=== PATIENT | female | born 1980 | race Caucasian/White ===

== ENCOUNTER 2020-12-14 08:49 | Inpatient (IN) | payer MEDICAID ==
[~2020-12-14] VITALS: Ht 170.2 cm; Wt 79.5 kg
[2020-12-14] MEDS ORDERED: normal saline 1000ml 1,000 ML IVB ONE (09:10)
[2020-12-14] MEDS ORDERED: pantoprazole 40 MG vial IV ONE (09:20)
[2020-12-14] MEDS ORDERED: normal saline 1000ML IV soln IVB ONE ×3 (09:20→11:45)
[2020-12-14] MEDS ORDERED: ondansetron/PF 4mg/2ml inj IV ONE (09:20)
[2020-12-14 09:44] LABS: BASOPHILS % (AUTO) 0 % (0-1); EOSINOPHILS % (AUTO) 0 % (0-6); HEMATOCRIT 37.2 % (35.0-45.0); HEMOGLOBIN 12.4 g/dl (12.0-16.0); LYMPHOCYTES # (AUTO) 0.4 X10'3 (1.1-4.8); LYMPHOCYTES % (AUTO) 2.4 % (21-51); MEAN CORPUSCULAR HEMOGLOBIN 35.7 PG (27.0-31.0); MEAN CORPUSCULAR HGB CONC 33.3 g/dL (33.0-36.5); MEAN PLATELET VOLUME 8.6 FL (7.4-10.4); MONOCYTES # (AUTO) 1.9 X10'3 (0-0.9); MONOCYTES % (AUTO) 10.2 % (2-12); NEUTROPHILS # (AUTO) 16.1 X10'3 (1.8-7.7); NEUTROPHILS % (AUTO) 87.4 % (42-75); PLATELET COUNT 277 X10'3 (140-440); RED BLOOD COUNT 3.47 X10'6 (4.20-5.60); RED CELL DISTRIBUTION WIDTH 16.4 % (11.5-14.5); WHITE BLOOD COUNT 18.5 X10'3 (4.5-11.0)
[2020-12-14 09:57] LABS: ALANINE AMINOTRANSFERASE 103 U/L (12-78); ALBUMIN 2.2 G/DL (3.4-5.0); ALBUMIN/GLOBULIN RATIO 0.6 (1.1-1.5); ALKALINE PHOSPHATASE 135 IU/L (46-116); ANION GAP 14 (8-16); ASPARTATE AMINO TRANSFERASE 106 U/L (10-37); BILIRUBIN,TOTAL 2.2 MG/DL (0.1-1.0); BLOOD UREA NITROGEN 23 MG/DL (7-18); CALCIUM 7.5 MG/DL (8.5-10.1); CHLORIDE 106 MMOL/L (99-107); CREATININE 1.35 MG/DL (0.40-0.90); ETHANOL < 0.010 GM/DL (0.0-0.010); GLUCOSE 216 MG/DL (70-104); POTASSIUM 3.2 MMOL/L (3.5-5.1); SODIUM 138 MMOL/L (135-145); TOTAL CARBON DIOXIDE 18.4 MMOL/L (24-32); TOTAL PROTEIN 5.8 G/DL (6.4-8.2); eGFR 43 ML/MIN
[2020-12-14 10:17] LABS: ANISOCYTOSIS 1+; PLATELET ESTIMATE NORMAL; TOTAL CELLS COUNTED 100
[2020-12-14 11:02] LABS: URINE HCG NEGATIVE (NEG)
[2020-12-14 11:19] LABS: URINE AMPHETAMINE SCREEN NEGATIVE (Neg); URINE BARBITUATE SCREEN NEGATIVE (Neg); URINE BENZODIAZEPINES SCREEN NEGATIVE (Neg); URINE CANNABINOID SCREEN NEGATIVE (Neg); URINE COCAINE SCREEN NEGATIVE (Neg); URINE METHADONE SCREEN NEGATIVE (Neg); URINE OPIATE SCREEN NEGATIVE (Neg); URINE PHENCYCLIDINE SCREEN NEGATIVE (Neg)
[2020-12-14 12:00] LABS: CLARITY,URINE CLOUDY (Clear); COLOR,URINE AMBER (Yellow); GLUCOSE, URINE NEGATIVE (Neg); KETONES,URINE 15 mg/dl (Neg); LEUKOCYTE ESTERASE ,URINE LARGE (Neg); NITRITES, URINE POSITIVE (Neg); OCCULT BLOOD,URINE TRACE-INTACT (Neg); PROTEIN,URINE TRACE mg/dl (Neg)
[2020-12-14 12:05] LABS: UA COLLECTION TYPE FOLEY CATH
[2020-12-14 12:07] LABS: BACTERIA,URINE 4+ /HPF (Neg); MUCUS STRANDS FEW /LPF (Neg); RBC,URINE 0-2 /HPF (0-2); SQUAMOUS EPITHELIAL CELL,UR NONE SEEN /LPF (FEW); WBC,URINE 50-100 /HPF (0-4)
[2020-12-14] MEDS ORDERED: piperacillin/tazo 3.375gm/50ml 50 ML IV ONE (12:15)
--- NOTE | 2020-12-14 13:01 | NUR ---
Patient laying on gurney moaning, did wake up but is ALOC.
--- NOTE | 2020-12-14 13:43 | NUR ---
Dr. Crane with patient
[2020-12-14] MEDS ORDERED: acetaminophen 325mg tablet PO PRN (14:00)
[2020-12-14] MEDS ORDERED: ondansetron/PF 4mg/2ml inj IV PRN (14:00)
[2020-12-14] MEDS ORDERED: potassium Cl 20 mEq SR tablet PO PRN (14:00)
[2020-12-14] MEDS ORDERED: magnesium 2GM in 50ml NS 50 ML IV PRN (14:00)
[2020-12-14] MEDS ORDERED: LORazepam 2 mg/ml vial IV PRN (14:00)
[2020-12-14] MEDS ORDERED: magnesium hydroxide 30ml (MOM) UD suspension PO PRN (14:00)
[2020-12-14] MEDS ORDERED: LORazepam 1 MG tablet PO PRN (14:00)
[2020-12-14] MEDS ORDERED: potassium Cl 40MEQ/1/2NS 520ml 520 ML IV PRN ×2 (14:00)
[2020-12-14] MEDS ORDERED: magnesium Cl slow-release 64mg tablet PO PRN (14:00)
[2020-12-14] MEDS ORDERED: mag hydrox/Alum hydrox/simeth 30ml oral suspension PO PRN (14:00)
[2020-12-14] MEDS ORDERED: thiamine 100mg/ml 2ml inj. IV ONE (14:00)
[2020-12-14] MEDS ORDERED: dextrose 50%-water 50ml dispensing syringe IV PRN (14:00)
[2020-12-14] MEDS ORDERED: magnesium 4gm in 100ml NS 100 ML IV PRN (14:00)
[2020-12-14] MEDS ORDERED: thiamine 100mg tablet PO SCH (14:17)
--- NOTE | 2020-12-14 14:23 | NUR ---
NG Placed, patient is waking up and becoming more alert. US Tech is in with patient now.
[2020-12-14] MEDS: normal saline 1000ml 1,000 ML IV SCH ×2 (15:08→20:40)
--- NOTE | 2020-12-14 15:14 | NUR ---
Patient's mother Latia Lewis [phone] called for update, I advised we were admitting Raeann. I was able to get medical history from mother.
[2020-12-14] MEDS: vancomycin/NS 1 GM ADD-VANTAGE 250 ML IV SCH (15:15)
[2020-12-14] MEDS ORDERED: NO HOME MEDS (16:03)
--- NOTE | 2020-12-14 16:33 | NUR ---
Patient's fiance is at the bedside and would like to talk with Dr. Crane, I paged her.
--- NOTE | 2020-12-14 16:42 | NUR ---
Dr. Crane in room talking with
[2020-12-14] MEDS: piperacillin/tazo 3.375gm/50ml 50 ML IV SCH ×2 (16:55→23:32)
[2020-12-14] MEDS: K and/or MAG REPLACEMENT MC SCH (19:31)
[2020-12-14] MEDS: thiamine inj. 100 MG in normal saline 100ml IV soln 100 ML IV SCH (19:31)
--- NOTE | 2020-12-14 19:33 | NUR ---
Dr. Quinones notified of T waves inverted on monitor; order for stat EKG. reviewed and compared to initial EKG, no new orders. aware K+ 3.2 is currently being replaced.
[2020-12-14] MEDS: heparin, porcine 5000 units/ml vial SQ SCH (20:08)
--- NOTE | 2020-12-14 22:32 | NUR ---
Patient is able to answer questions, denies pain but states "I am just so tired".
--- NOTE | 2020-12-14 23:27 | NUR ---
Called Telemetry unit for report, RN will call me back.
--- NOTE | 2020-12-15 00:45 | NUR ---
Blank Belcher placed with warm blankets.
--- NOTE | 2020-12-15 00:45 | NUR ---
Dr. Quinones notified of bladder temp 35.0 C (95.0 F). New orders received to keep body temp above 97.0 F, use warm blankets or Blank hugger.
--- NOTE | 2020-12-15 01:16 | NUR ---
Receiving RN updated on patient now with Blank Belcher. Request to call back with report after 30 minutes.
--- NOTE | 2020-12-15 02:30 | NUR ---
Pt arrived via gurney in no acute distress. Oriented to bed, room, surroundings, and POC. Sleeping interm.
[2020-12-15 03:00] VITALS: BP 122/77
[2020-12-15] MEDS: normal saline 1000ml 1,000 ML IV SCH ×3 (03:43→17:47)
[2020-12-15] MEDS: vancomycin/NS 1 GM ADD-VANTAGE 250 ML IV SCH (04:19)
[2020-12-15 06:00] VITALS: BP 124/80
[2020-12-15 06:52] LABS: BASOPHILS % (AUTO) 0.1 % (0-1); EOSINOPHILS # (AUTO) 0.1 X10'3 (0-0.9); EOSINOPHILS % (AUTO) 1.2 % (0-6); HEMATOCRIT 36.9 % (35.0-45.0); HEMOGLOBIN 12.3 g/dl (12.0-16.0); LYMPHOCYTES # (AUTO) 0.5 X10'3 (1.1-4.8); MEAN CORPUSCULAR HEMOGLOBIN 36.1 PG (27.0-31.0); MEAN CORPUSCULAR HGB CONC 33.2 g/dL (33.0-36.5); MEAN CORPUSCULAR VOLUME 108.6 FL (78-98); MEAN PLATELET VOLUME 9.3 FL (7.4-10.4); MONOCYTES # (AUTO) 0.6 X10'3 (0-0.9); MONOCYTES % (AUTO) 4.9 % (2-12); NEUTROPHILS % (AUTO) 89.8 % (42-75); PLATELET COUNT 217 X10'3 (140-440); RED CELL DISTRIBUTION WIDTH 16.7 % (11.5-14.5); WHITE BLOOD COUNT 12.2 X10'3 (4.5-11.0)
[2020-12-15 06:57] LABS: ALANINE AMINOTRANSFERASE 95 U/L (12-78); ALBUMIN/GLOBULIN RATIO 0.6 (1.1-1.5); ALKALINE PHOSPHATASE 129 IU/L (46-116); ANION GAP 12 (8-16); ASPARTATE AMINO TRANSFERASE 100 U/L (10-37); BILIRUBIN,TOTAL 2.1 MG/DL (0.1-1.0); BLOOD UREA NITROGEN 10 MG/DL (7-18); BUN/CREATININE RATIO 13.7 (6.6-38.0); CALCIUM 7.5 MG/DL (8.5-10.1); CHLORIDE 109 MMOL/L (99-107); CREATININE 0.73 MG/DL (0.40-0.90); GLUCOSE 82 MG/DL (70-104); MAGNESIUM 1.6 MG/DL (1.5-2.4); PHOSPHORUS 2.5 MG/DL (2.3-4.5); POTASSIUM 3.8 MMOL/L (3.5-5.1); SODIUM 141 MMOL/L (135-145); TOTAL CARBON DIOXIDE 20.2 MMOL/L (24-32); TOTAL PROTEIN 5.4 G/DL (6.4-8.2); eGFR 88 ML/MIN
--- NOTE | 2020-12-15 07:53 | NUR ---
Problems reprioritized. Patient report given, questions answered & plan of care reviewed with Nicki ALBA.
[2020-12-15] MEDS: K and/or MAG REPLACEMENT MC SCH ×2 (08:00→20:00)
[2020-12-15] MEDS ORDERED: folic acid 1mg tablet PO SCH (08:00)
[2020-12-15] MEDS: folic acid 1mg/0.2ml inj IV SCH (08:00)
[2020-12-15] MEDS: multivitamins, therapeutics tablet PO SCH (08:40)
[2020-12-15] MEDS: heparin, porcine 5000 units/ml vial SQ SCH ×2 (08:40→22:14)
[2020-12-15] MEDS: piperacillin/tazo 3.375gm/50ml 50 ML IV SCH ×2 (08:40→16:00)
[2020-12-15] MEDS: thiamine inj. 100 MG in normal saline 100ml IV soln 100 ML IV SCH (08:40)
[2020-12-15] MEDS ORDERED: acetaminophen 325mg tablet PO PRN (09:20)
[2020-12-15 11:00] VITALS: BP 116/79
[2020-12-15] MEDS ORDERED: vancomycin/NS 1 GM ADD-VANTAGE 250 ML IV SCH (12:00)
[2020-12-15 15:00] VITALS: BP 127/70
--- NOTE | 2020-12-15 16:13 | NUR ---
Initial: Pt admitted w/ ALOC after alcohol abuse per EMR. Pt currently on Clear liquid diet consuming 100% but not meeting needs d/t restrictive diet order. No N/V/D reported, LBM not known. Discussed w/ RN about advancing pt's diet if MD agreeable. Will continue to monitor. Recommend 1. Advance to Regular diet per MD order 2. Ensure Clear TID to provide 720kcals and 24g protein if consumed 100% 3. Bowel care per rx 4. Weekly wts Addendum: 12/15/20 at [address] Amended: Links added.
--- NOTE | 2020-12-15 18:00 | NUR ---
Patient in room U 3016. I have received report from Nicki ALBA and had the opportunity to ask questions and assume patient care. Addendum: 12/15/20 at 1846 by Isabel Kaye RN Amended: Links added.
--- NOTE | 2020-12-15 18:32 | NUR ---
Patient in room U 3016. I have received report from ANJALI Hall and had the opportunity to ask questions and assume patient care. Addendum: 12/15/20 at 1834 by Nicki Modi RN Report not received, report given: Problems reprioritized. Patient report given, questions answered & plan of care reviewed with ANJALI Hall.
[2020-12-15 18:56] VITALS: BP 117/77
--- NOTE | 2020-12-15 19:00 | NUR ---
Pt. is lethargic, responsive but drifts right back to sleep therefore could not gather much information from patient during my assessment rounds. Bed alarm activated and bed in low position. Will continue monitoring. Addendum: 12/16/20 at 0156 by Isabel Kaye RN Amended: Links added.
[2020-12-15 22:00] VITALS: BP 124/81
[2020-12-15] MEDS: lactobacillus rhamnosus 10,000 MMU CELLS/CAPSULE PO SCH (22:14)
[2020-12-16] MEDS: piperacillin/tazo 3.375gm/50ml 50 ML IV SCH ×4 (00:55→23:44)
[2020-12-16] MEDS: normal saline 1000ml 1,000 ML IV SCH ×3 (00:55→23:32)
[2020-12-16 02:00] VITALS: BP 146/79
[2020-12-16] MEDS ORDERED: VANCOMYCIN LEVEL IV ONE (03:30)
[2020-12-16 06:00] VITALS: BP 142/83
[2020-12-16 07:35] LABS: BASOPHILS % (AUTO) 0.3 % (0-1); EOSINOPHILS # (AUTO) 0.1 X10'3 (0-0.9); EOSINOPHILS % (AUTO) 1.8 % (0-6); HEMATOCRIT 33.6 % (35.0-45.0); HEMOGLOBIN 11.4 g/dl (12.0-16.0); LYMPHOCYTES # (AUTO) 0.9 X10'3 (1.1-4.8); LYMPHOCYTES % (AUTO) 12.7 % (21-51); MEAN CORPUSCULAR HEMOGLOBIN 36.5 PG (27.0-31.0); MEAN CORPUSCULAR HGB CONC 33.8 g/dL (33.0-36.5); MEAN CORPUSCULAR VOLUME 107.8 FL (78-98); MEAN PLATELET VOLUME 9.1 FL (7.4-10.4); MONOCYTES # (AUTO) 0.7 X10'3 (0-0.9); MONOCYTES % (AUTO) 9.3 % (2-12); NEUTROPHILS # (AUTO) 5.5 X10'3 (1.8-7.7); NEUTROPHILS % (AUTO) 75.9 % (42-75); PLATELET COUNT 203 X10'3 (140-440); RED BLOOD COUNT 3.12 X10'6 (4.20-5.60); WHITE BLOOD COUNT 7.3 X10'3 (4.5-11.0)
[2020-12-16 07:50] LABS: ALANINE AMINOTRANSFERASE 83 U/L (12-78); ALBUMIN 1.8 G/DL (3.4-5.0); ALBUMIN/GLOBULIN RATIO 0.5 (1.1-1.5); ALKALINE PHOSPHATASE 121 IU/L (46-116); ANION GAP 8 (8-16); ASPARTATE AMINO TRANSFERASE 88 U/L (10-37); BILIRUBIN,TOTAL 1.5 MG/DL (0.1-1.0); BLOOD UREA NITROGEN 4 MG/DL (7-18); BUN/CREATININE RATIO 6.6 (6.6-38.0); CALCIUM 7.6 MG/DL (8.5-10.1); CHLORIDE 110 MMOL/L (99-107); CREATININE 0.61 MG/DL (0.40-0.90); GLUCOSE 81 MG/DL (70-104); POTASSIUM 3.2 MMOL/L (3.5-5.1); SODIUM 138 MMOL/L (135-145); TOTAL CARBON DIOXIDE 19.9 MMOL/L (24-32); TOTAL PROTEIN 5.1 G/DL (6.4-8.2); eGFR > 90 ML/MIN
[2020-12-16 07:51] LABS: MAGNESIUM 1.7 MG/DL (1.5-2.4); PHOSPHORUS 2.8 MG/DL (2.3-4.5)
[2020-12-16] MEDS: K and/or MAG REPLACEMENT MC SCH ×2 (08:00→20:00)
[2020-12-16] MEDS: folic acid 1mg/0.2ml inj IV SCH (08:09)
[2020-12-16] MEDS: heparin, porcine 5000 units/ml vial SQ SCH ×2 (08:14→19:55)
[2020-12-16 11:00] VITALS: BP 148/79
[2020-12-16] MEDS: lactobacillus rhamnosus 10,000 MMU CELLS/CAPSULE PO SCH ×2 (14:25→20:00)
[2020-12-16] MEDS: potassium Cl 20 mEq SR tablet PO PRN ×2 (14:25→19:55)
[2020-12-16] MEDS: multivitamins, therapeutics tablet PO SCH (14:25)
[2020-12-16] MEDS: thiamine inj. 100 MG in normal saline 100ml IV soln 100 ML IV SCH (14:26)
--- NOTE | 2020-12-16 14:38 | NUR ---
Malnutrition Consult: Pt has no edema/wounds, pending scaled wt this admit w/ no prior wt hx, and PO 75-100% initial clear liquid meals now advanced to full liquid diet today further PO intake pending. At this time pt lacks minimum two malnutrition criteria. Will monitor for additional criteria this admit. Recommend 1. Advance to Regular diet per MD 2. IF prolonged restrictive diet or PO remains poor; consider ensure enlive ONS 3. continue routine thiamin, folic, MVI for etoh hx 4. Bowel care per rx 5. scaled wt this admit; subsequent weekly wts Addendum: 12/16/20 at [address] Amended: Links added.
[2020-12-16 15:00] VITALS: BP 122/83
[2020-12-16] MEDS: NUT.TX.IMPAIRED DIGEST FXN (Ensure Clear) 237 ML PO SCH (17:38)
[2020-12-16 18:30] VITALS: BP 127/86
[2020-12-16 22:00] VITALS: BP 137/92
[2020-12-17 02:20] VITALS: BP 132/83
[2020-12-17 06:00] VITALS: BP 130/90
--- NOTE | 2020-12-17 06:27 | NUR ---
Patient in room PCU 3016. I have received report from ANJALI KURTZ and had the opportunity to ask questions and assume patient care.
[2020-12-17 06:36] LABS: BASOPHILS % (AUTO) 0.6 % (0-1); EOSINOPHILS # (AUTO) 0.1 X10'3 (0-0.9); EOSINOPHILS % (AUTO) 2.2 % (0-6); HEMATOCRIT 30.8 % (35.0-45.0); HEMOGLOBIN 10.3 g/dl (12.0-16.0); LYMPHOCYTES # (AUTO) 1.3 X10'3 (1.1-4.8); MEAN CORPUSCULAR HEMOGLOBIN 35.8 PG (27.0-31.0); MEAN CORPUSCULAR HGB CONC 33.6 g/dL (33.0-36.5); MEAN CORPUSCULAR VOLUME 106.5 FL (78-98); MEAN PLATELET VOLUME 8.9 FL (7.4-10.4); MONOCYTES # (AUTO) 0.5 X10'3 (0-0.9); MONOCYTES % (AUTO) 7.5 % (2-12); NEUTROPHILS # (AUTO) 4.1 X10'3 (1.8-7.7); NEUTROPHILS % (AUTO) 67.7 % (42-75); PLATELET COUNT 207 X10'3 (140-440); RED BLOOD COUNT 2.89 X10'6 (4.20-5.60); RED CELL DISTRIBUTION WIDTH 15.9 % (11.5-14.5); WHITE BLOOD COUNT 6.1 X10'3 (4.5-11.0)
[2020-12-17 06:55] LABS: ALANINE AMINOTRANSFERASE 72 U/L (12-78); ALBUMIN 1.7 G/DL (3.4-5.0); ALBUMIN/GLOBULIN RATIO 0.6 (1.1-1.5); ALKALINE PHOSPHATASE 115 IU/L (46-116); ANION GAP 10 (8-16); ASPARTATE AMINO TRANSFERASE 70 U/L (10-37); BILIRUBIN,TOTAL 1.1 MG/DL (0.1-1.0); BLOOD UREA NITROGEN 2 MG/DL (7-18); BUN/CREATININE RATIO 3.4 (6.6-38.0); CALCIUM 7.8 MG/DL (8.5-10.1); CHLORIDE 116 MMOL/L (99-107); CREATININE 0.58 MG/DL (0.40-0.90); GLUCOSE 83 MG/DL (70-104); MAGNESIUM 1.8 MG/DL (1.5-2.4); PHOSPHORUS 3.3 MG/DL (2.3-4.5); POTASSIUM 3.4 MMOL/L (3.5-5.1); SODIUM 148 MMOL/L (135-145); TOTAL CARBON DIOXIDE 22.2 MMOL/L (24-32); TOTAL PROTEIN 4.7 G/DL (6.4-8.2); eGFR > 90 ML/MIN
[2020-12-17] MEDS: K and/or MAG REPLACEMENT MC SCH ×2 (08:00→20:00)
[2020-12-17] MEDS: NUT.TX.IMPAIRED DIGEST FXN (Ensure Clear) 237 ML PO SCH ×3 (08:00→18:00)
[2020-12-17] MEDS: thiamine inj. 100 MG in normal saline 100ml IV soln 100 ML IV SCH (08:00)
[2020-12-17] MEDS: lactobacillus rhamnosus 10,000 MMU CELLS/CAPSULE PO SCH ×2 (09:15→19:41)
[2020-12-17] MEDS: multivitamins, therapeutics tablet PO SCH (09:15)
[2020-12-17] MEDS: piperacillin/tazo 3.375gm/50ml 50 ML IV SCH ×2 (09:15→16:00)
[2020-12-17] MEDS: heparin, porcine 5000 units/ml vial SQ SCH ×2 (09:16→19:41)
[2020-12-17] MEDS: folic acid 1mg/0.2ml inj IV SCH (09:31)
[2020-12-17] MEDS: normal saline 1000ml 1,000 ML IV SCH ×2 (09:33→19:32)
[2020-12-17 11:00] VITALS: BP 130/87
--- NOTE | 2020-12-17 14:46 | NUR ---
Paged Dr. Crane regarding patient discharge. PAGER ID: [phone] MESSAGE: [phone]. RUI GARCIA. Can we cancel the discharge on patient? It is still active. Thank you. Lisa ALBA x [phone]
[2020-12-17] MEDS ORDERED: magnesium Cl slow-release 64mg tablet PO PRN (15:30)
[2020-12-17] MEDS ORDERED: magnesium 4gm in 100ml NS 100 ML IV PRN (15:30)
[2020-12-17] MEDS ORDERED: potassium Cl 40MEQ/1/2NS 520ml 520 ML IV PRN (15:30)
[2020-12-17] MEDS ORDERED: magnesium 2GM in 50ml NS 50 ML IV PRN (15:30)
[2020-12-17] MEDS ORDERED: potassium Cl 20 mEq SR tablet PO PRN (15:30)
[2020-12-17 17:00] VITALS: BP 111/78
--- NOTE | 2020-12-17 17:00 | NUR ---
pt enc to void via bedpan ,unable, bladder scanned with 632cc urine in bladder, straight cathed w/o difficulty for 700 cc clear yellow urine
[2020-12-17 18:30] VITALS: BP 109/71
--- NOTE | 2020-12-17 18:34 | NUR ---
Problems reprioritized. Patient report given, questions answered & plan of care reviewed with lazara cornell.
[2020-12-17] MEDS: acetaminophen 325mg tablet PO PRN (19:46)
[2020-12-17 22:00] VITALS: BP 127/91
[2020-12-18] MEDS: piperacillin/tazo 3.375gm/50ml 50 ML IV SCH ×3 (00:37→16:34)
[2020-12-18 02:00] VITALS: BP 130/84
[2020-12-18 06:00] VITALS: BP 129/84
[2020-12-18 06:07] LABS: BASOPHILS % (AUTO) 0.6 % (0-1); EOSINOPHILS # (AUTO) 0.2 X10'3 (0-0.9); EOSINOPHILS % (AUTO) 2.6 % (0-6); HEMATOCRIT 31.1 % (35.0-45.0); HEMOGLOBIN 10.4 g/dl (12.0-16.0); LYMPHOCYTES # (AUTO) 1.2 X10'3 (1.1-4.8); MEAN CORPUSCULAR HEMOGLOBIN 35.7 PG (27.0-31.0); MEAN CORPUSCULAR HGB CONC 33.3 g/dL (33.0-36.5); MEAN CORPUSCULAR VOLUME 107.3 FL (78-98); MEAN PLATELET VOLUME 8.9 FL (7.4-10.4); MONOCYTES # (AUTO) 0.5 X10'3 (0-0.9); NEUTROPHILS # (AUTO) 4.3 X10'3 (1.8-7.7); NEUTROPHILS % (AUTO) 68.8 % (42-75); PLATELET COUNT 252 X10'3 (140-440); RED CELL DISTRIBUTION WIDTH 16.1 % (11.5-14.5); WHITE BLOOD COUNT 6.2 X10'3 (4.5-11.0)
[2020-12-18 06:25] LABS: ALANINE AMINOTRANSFERASE 67 U/L (12-78); ALBUMIN 1.7 G/DL (3.4-5.0); ALBUMIN/GLOBULIN RATIO 0.5 (1.1-1.5); ALKALINE PHOSPHATASE 111 IU/L (46-116); ANION GAP 9 (8-16); ASPARTATE AMINO TRANSFERASE 66 U/L (10-37); BILIRUBIN,TOTAL 1.1 MG/DL (0.1-1.0); BLOOD UREA NITROGEN 4 MG/DL (7-18); BUN/CREATININE RATIO 6.3 (6.6-38.0); CALCIUM 7.8 MG/DL (8.5-10.1); CHLORIDE 116 MMOL/L (99-107); CREATININE 0.63 MG/DL (0.40-0.90); GLUCOSE 90 MG/DL (70-104); MAGNESIUM 1.7 MG/DL (1.5-2.4); POTASSIUM 3.7 MMOL/L (3.5-5.1); SODIUM 150 MMOL/L (135-145); TOTAL CARBON DIOXIDE 24.9 MMOL/L (24-32); eGFR > 90 ML/MIN
--- NOTE | 2020-12-18 06:41 | NUR ---
Problems reprioritized. Patient report given, questions answered & plan of care reviewed with ENE. Addendum: 12/18/20 at 0642 by Antonio Mojica RN Amended: Links added.
[2020-12-18 06:46] LABS: ANISOCYTOSIS 1+; PLATELET ESTIMATE NORMAL; TOTAL CELLS COUNTED 100
[2020-12-18 06:47] LABS: LARGE PLATELETS FEW
[2020-12-18] MEDS: acetaminophen 325mg tablet PO PRN (07:55)
[2020-12-18] MEDS: K and/or MAG REPLACEMENT MC SCH ×2 (08:00→20:00)
--- NOTE | 2020-12-18 08:25 | NUR ---
[facility] [phone] MESSAGE: room 3016B Raeann Jass, Na is 150 and pt has NS running @ 100, can we switch her to 1/2 NS? thank you, Nyla ALBA #[phone]
[2020-12-18] MEDS: NUT.TX.IMPAIRED DIGEST FXN (Ensure Clear) 237 ML PO SCH ×2 (08:30→13:00)
[2020-12-18] MEDS: normal saline 1000ml 1,000 ML IV SCH (09:40)
[2020-12-18] MEDS: thiamine inj. 100 MG in normal saline 100ml IV soln 100 ML IV SCH ×2 (09:40→10:08)
[2020-12-18] MEDS: heparin, porcine 5000 units/ml vial SQ SCH ×2 (09:42→20:28)
[2020-12-18] MEDS: lactobacillus rhamnosus 10,000 MMU CELLS/CAPSULE PO SCH ×2 (09:42→20:28)
[2020-12-18] MEDS: multivitamins, therapeutics tablet PO SCH (09:42)
[2020-12-18 11:00] VITALS: BP 134/97
--- NOTE | 2020-12-18 12:00 | NUR ---
Reassessment: Pt advanced to regular diet last night 12/17, today is first day receiving regular meals. Per RN, pt ate 100% of breakfast today. Discussed w/ RN to d/c Ensure Clear. Pt w/ elevated Na while receiving NS, noted that RN has addressed this to MD. No N/V/D reported, LBM 12/14. No nutritional diagnosis at this time, will continue to monitor PO trends and need for ONS on Regular diet. Recommend 1. Continue Regular diet as tolerated 2. Bowel care per rx 3. continue routine thiamin, folic, MVI for etoh hx 4. scaled wt this admit; subsequent weekly wts Addendum: 12/18/20 at [address] Amended: Links added.
[2020-12-18 15:00] VITALS: BP 126/82
[2020-12-18] MEDS: folic acid 1mg/0.2ml inj IV SCH (15:32)
[2020-12-18] MEDS: dextrose 5%-water 1,000 ML IV SCH (15:32)
[2020-12-18 18:00] VITALS: BP 117/84
--- NOTE | 2020-12-18 18:30 | NUR ---
Patient in room PCU 3016. I have received report from ENE ALBA and had the opportunity to ask questions and assume patient care.
[2020-12-18 22:00] VITALS: BP 122/76
[2020-12-19] MEDS: piperacillin/tazo 3.375gm/50ml 50 ML IV SCH ×3 (00:31→16:39)
[2020-12-19 02:00] VITALS: BP 108/76
[2020-12-19] MEDS: dextrose 5%-water 1,000 ML IV SCH ×2 (04:31→18:26)
[2020-12-19 06:00] VITALS: BP 117/79
--- NOTE | 2020-12-19 06:25 | NUR ---
Problems reprioritized. Patient report given, questions answered & plan of care reviewed with CHANTEL ALBA.
--- NOTE | 2020-12-19 06:29 | NUR ---
Patient in room PCU 3016. I have received report from ANJALI WALKER, and had the opportunity to ask questions and assume patient care.
[2020-12-19 06:36] LABS: BASOPHILS % (AUTO) 0.9 % (0-1); EOSINOPHILS # (AUTO) 0.2 X10'3 (0-0.9); EOSINOPHILS % (AUTO) 4.2 % (0-6); HEMATOCRIT 30.3 % (35.0-45.0); HEMOGLOBIN 10.1 g/dl (12.0-16.0); LYMPHOCYTES # (AUTO) 1.4 X10'3 (1.1-4.8); LYMPHOCYTES % (AUTO) 29.4 % (21-51); MEAN CORPUSCULAR HEMOGLOBIN 35.6 PG (27.0-31.0); MEAN CORPUSCULAR HGB CONC 33.4 g/dL (33.0-36.5); MEAN CORPUSCULAR VOLUME 106.4 FL (78-98); MEAN PLATELET VOLUME 8.7 FL (7.4-10.4); MONOCYTES # (AUTO) 0.4 X10'3 (0-0.9); MONOCYTES % (AUTO) 8.2 % (2-12); NEUTROPHILS # (AUTO) 2.8 X10'3 (1.8-7.7); NEUTROPHILS % (AUTO) 57.3 % (42-75); PLATELET COUNT 255 X10'3 (140-440); RED BLOOD COUNT 2.85 X10'6 (4.20-5.60); WHITE BLOOD COUNT 4.8 X10'3 (4.5-11.0)
[2020-12-19 06:57] LABS: ALANINE AMINOTRANSFERASE 59 U/L (12-78); ALBUMIN 1.7 G/DL (3.4-5.0); ALBUMIN/GLOBULIN RATIO 0.5 (1.1-1.5); ALKALINE PHOSPHATASE 115 IU/L (46-116); ANION GAP 7 (8-16); ASPARTATE AMINO TRANSFERASE 52 U/L (10-37); BILIRUBIN,TOTAL 0.8 MG/DL (0.1-1.0); BLOOD UREA NITROGEN 4 MG/DL (7-18); BUN/CREATININE RATIO 5.5 (6.6-38.0); CHLORIDE 113 MMOL/L (99-107); CREATININE 0.73 MG/DL (0.40-0.90); GLUCOSE 102 MG/DL (70-104); MAGNESIUM 1.7 MG/DL (1.5-2.4); POTASSIUM 3.2 MMOL/L (3.5-5.1); SODIUM 147 MMOL/L (135-145); TOTAL CARBON DIOXIDE 26.9 MMOL/L (24-32); TOTAL PROTEIN 4.9 G/DL (6.4-8.2); eGFR 88 ML/MIN
[2020-12-19] MEDS: K and/or MAG REPLACEMENT MC SCH ×2 (08:00→19:29)
[2020-12-19] MEDS: folic acid 1mg/0.2ml inj IV SCH (08:13)
[2020-12-19] MEDS: thiamine inj. 100 MG in normal saline 100ml IV soln 100 ML IV SCH (08:15)
[2020-12-19] MEDS: multivitamins, therapeutics tablet PO SCH (08:18)
[2020-12-19] MEDS: heparin, porcine 5000 units/ml vial SQ SCH ×2 (08:19→20:43)
[2020-12-19] MEDS: lactobacillus rhamnosus 10,000 MMU CELLS/CAPSULE PO SCH ×2 (08:20→20:44)
[2020-12-19] MEDS: potassium Cl 20 mEq SR tablet PO PRN ×3 (08:24→18:26)
[2020-12-19 11:00] VITALS: BP 111/68
[2020-12-19 15:00] VITALS: BP 123/84
[2020-12-19 16:29] LABS: HIV ANTIBODY 1&2 RAPID NON-REACTIVE (Neg)
[2020-12-19 18:00] VITALS: BP 127/72
[2020-12-19] MEDS ORDERED: GADOTERATE MEGLUMINE 7.5 MMOL/15 ML VIAL IV ONE (19:01)
[2020-12-19] MEDS: Melatonin 3mg tablet PO SCH (20:44)
[2020-12-19 22:00] VITALS: BP 118/86
[2020-12-20] MEDS: piperacillin/tazo 3.375gm/50ml 50 ML IV SCH ×5 (00:39→23:48)
[2020-12-20 02:00] VITALS: BP 116/85
[2020-12-20 06:00] VITALS: BP 127/87
--- NOTE | 2020-12-20 06:31 | NUR ---
Problems reprioritized. Patient report given, questions answered & plan of care reviewed with ANJALI Hermosillo and ANJALI Redmond.
--- NOTE | 2020-12-20 06:35 | NUR ---
Patient in room PCU 3016. I have received report from Lisbet ALBA and had the opportunity to ask questions and assume patient care.
--- NOTE | 2020-12-20 06:37 | NUR ---
Patient in room PCU 3016. I have received report from STEVIE ALBA and had the opportunity to ask questions and assume patient care. PT AWAKE DURING REPORT.
[2020-12-20] MEDS: dextrose 5%-water 1,000 ML IV SCH ×2 (07:15→19:04)
[2020-12-20 07:43] LABS: BASOPHILS # (AUTO) 0.1 X10'3 (0-0.2); EOSINOPHILS # (AUTO) 0.2 X10'3 (0-0.9); EOSINOPHILS % (AUTO) 2.9 % (0-6); HEMATOCRIT 30.7 % (35.0-45.0); HEMOGLOBIN 10.2 g/dl (12.0-16.0); LYMPHOCYTES # (AUTO) 1.1 X10'3 (1.1-4.8); LYMPHOCYTES % (AUTO) 19.3 % (21-51); MEAN CORPUSCULAR HEMOGLOBIN 35.5 PG (27.0-31.0); MEAN CORPUSCULAR HGB CONC 33.3 g/dL (33.0-36.5); MEAN CORPUSCULAR VOLUME 106.7 FL (78-98); MONOCYTES # (AUTO) 0.4 X10'3 (0-0.9); MONOCYTES % (AUTO) 6.5 % (2-12); NEUTROPHILS # (AUTO) 3.9 X10'3 (1.8-7.7); NEUTROPHILS % (AUTO) 70.3 % (42-75); PLATELET COUNT 287 X10'3 (140-440); RED BLOOD COUNT 2.88 X10'6 (4.20-5.60); RED CELL DISTRIBUTION WIDTH 16.4 % (11.5-14.5); WHITE BLOOD COUNT 5.5 X10'3 (4.5-11.0)
[2020-12-20 08:07] LABS: ALANINE AMINOTRANSFERASE 54 U/L (12-78); ALBUMIN 1.9 G/DL (3.4-5.0); ALBUMIN/GLOBULIN RATIO 0.6 (1.1-1.5); ALKALINE PHOSPHATASE 118 IU/L (46-116); ANION GAP 6 (8-16); ASPARTATE AMINO TRANSFERASE 50 U/L (10-37); BILIRUBIN,TOTAL 0.7 MG/DL (0.1-1.0); BLOOD UREA NITROGEN 6 MG/DL (7-18); BUN/CREATININE RATIO 7.6 (6.6-38.0); CALCIUM 8.1 MG/DL (8.5-10.1); CHLORIDE 112 MMOL/L (99-107); CREATININE 0.79 MG/DL (0.40-0.90); GLUCOSE 145 MG/DL (70-104); MAGNESIUM 1.9 MG/DL (1.5-2.4); PHOSPHORUS 3.8 MG/DL (2.3-4.5); POTASSIUM 3.4 MMOL/L (3.5-5.1); SODIUM 145 MMOL/L (135-145); TOTAL CARBON DIOXIDE 27.5 MMOL/L (24-32); TOTAL PROTEIN 5.2 G/DL (6.4-8.2); eGFR 80 ML/MIN
[2020-12-20] MEDS: thiamine inj. 100 MG in normal saline 100ml IV soln 100 ML IV SCH (08:36)
[2020-12-20] MEDS: folic acid 1mg/0.2ml inj IV SCH (08:37)
[2020-12-20] MEDS: lactobacillus rhamnosus 10,000 MMU CELLS/CAPSULE PO SCH ×2 (08:38→20:44)
[2020-12-20] MEDS: potassium Cl 20 mEq SR tablet PO PRN ×3 (08:38→20:44)
[2020-12-20] MEDS: heparin, porcine 5000 units/ml vial SQ SCH ×2 (08:38→20:45)
[2020-12-20] MEDS: acetaminophen 325mg tablet PO PRN (08:39)
[2020-12-20] MEDS: multivitamins, therapeutics tablet PO SCH (08:39)
[2020-12-20] MEDS: K and/or MAG REPLACEMENT MC SCH ×2 (08:51→20:00)
[2020-12-20 11:00] VITALS: BP 132/90
--- NOTE | 2020-12-20 14:12 | NUR ---
Reassessment: Pt continues on regular diet and PO intake fluctuates with overall average 52% PO intake since diet advancement, however noted pt with 100% PO intake at breakfast this morning. Noted pt receiving D5 at 100 mL/hr providing roughly 408 kcal/day. Per EMR pt with h/o gastric bypass surgery in 2016, pt currently receiving routine MVI and vitamin B12 and vitamin B1 labs pending. Possible that pt will not consistently consume 100% PO intake of meals r/t bariatric surgery. LBM 8/ with PRN bowel care available however not documented to be given. Constipation likely to impact appetite. D/w dietary to send prunes and prune juice with next meal to assist with bowel regularity. Will continue to follow and monitor need for further nutrition intervention. Recommend 1. Continue Regular diet 2. Routine Thiamine, Folic, and MVI for EtOH hx and h/o gastric bypass 3. Routine bowel care 4. Scaled wt this admit; subsequent weekly scaled wts Addendum: 12/20/20 at [address] Amended: Links added.
[2020-12-20 15:00] VITALS: BP 117/81
[2020-12-20 18:00] VITALS: BP 118/75
--- NOTE | 2020-12-20 18:09 | NUR ---
Problems reprioritized. Patient report given, questions answered & plan of care reviewed with Vannessa ALBA.
--- NOTE | 2020-12-20 18:30 | NUR ---
Patient in room PCU 3016. I have received report from Nyla ALBA and Bay RN and had the opportunity to ask questions and assume patient care.
[2020-12-20] MEDS ORDERED: potassium Cl 40MEQ/1/2NS 520ml 520 ML IV PRN (20:35)
[2020-12-20] MEDS ORDERED: magnesium Cl slow-release 64mg tablet PO PRN (20:35)
[2020-12-20] MEDS ORDERED: potassium Cl 20 mEq SR tablet PO PRN (20:35)
[2020-12-20] MEDS ORDERED: magnesium 4gm in 100ml NS 100 ML IV PRN (20:35)
[2020-12-20] MEDS: Melatonin 3mg tablet PO SCH (20:43)
[2020-12-20 22:00] VITALS: BP 116/74
[2020-12-21 02:00] VITALS: BP 105/72
--- NOTE | 2020-12-21 06:08 | NUR ---
Problems reprioritized. Patient report given, questions answered & plan of care reviewed with Brittni ALBA.
[2020-12-21 06:16] LABS: BASOPHILS % (AUTO) 0.7 % (0-1); EOSINOPHILS # (AUTO) 0.2 X10'3 (0-0.9); EOSINOPHILS % (AUTO) 3.3 % (0-6); HEMATOCRIT 33.3 % (35.0-45.0); HEMOGLOBIN 10.8 g/dl (12.0-16.0); LYMPHOCYTES # (AUTO) 1.1 X10'3 (1.1-4.8); LYMPHOCYTES % (AUTO) 17.4 % (21-51); MEAN CORPUSCULAR HEMOGLOBIN 35.5 PG (27.0-31.0); MEAN CORPUSCULAR HGB CONC 32.5 g/dL (33.0-36.5); MEAN CORPUSCULAR VOLUME 109.3 FL (78-98); MEAN PLATELET VOLUME 8.7 FL (7.4-10.4); MONOCYTES # (AUTO) 0.4 X10'3 (0-0.9); NEUTROPHILS # (AUTO) 4.3 X10'3 (1.8-7.7); NEUTROPHILS % (AUTO) 71.6 % (42-75); PLATELET COUNT 285 X10'3 (140-440); RED BLOOD COUNT 3.05 X10'6 (4.20-5.60)
[2020-12-21 06:32] LABS: ALANINE AMINOTRANSFERASE 52 U/L (12-78); ALBUMIN/GLOBULIN RATIO 0.6 (1.1-1.5); ALKALINE PHOSPHATASE 107 IU/L (46-116); ANION GAP 8 (8-16); ASPARTATE AMINO TRANSFERASE 40 U/L (10-37); BILIRUBIN,TOTAL 0.7 MG/DL (0.1-1.0); BLOOD UREA NITROGEN 4 MG/DL (7-18); CHLORIDE 103 MMOL/L (99-107); GLUCOSE 387 MG/DL (70-104); MAGNESIUM 1.5 MG/DL (1.5-2.4); PHOSPHORUS 3.8 MG/DL (2.3-4.5); POTASSIUM 3.4 MMOL/L (3.5-5.1); SODIUM 137 MMOL/L (135-145); TOTAL PROTEIN 5.5 G/DL (6.4-8.2); eGFR 79 ML/MIN
[2020-12-21 07:00] VITALS: BP 123/81
--- NOTE | 2020-12-21 07:11 | NUR ---
Patient in room U 3016. I have received report from and had the opportunity to ask questions and assume patient care. Addendum: 12/21/20 at 0714 by Brittni Serrano RN report received from Vannessa ALBA. Pt supine in bed, sleeping soundly, chest rising and falling evenly. SRx2, BLL, CL within reach, no s/sx acute distress
[2020-12-21] MEDS: K and/or MAG REPLACEMENT MC SCH ×4 (08:00→20:00)
[2020-12-21] MEDS: folic acid 1mg/0.2ml inj IV SCH (08:55)
[2020-12-21] MEDS: piperacillin/tazo 3.375gm/50ml 50 ML IV SCH ×2 (08:55→17:00)
[2020-12-21] MEDS: lactobacillus rhamnosus 10,000 MMU CELLS/CAPSULE PO SCH ×2 (08:55→20:53)
[2020-12-21] MEDS: multivitamins, therapeutics tablet PO SCH (08:55)
[2020-12-21] MEDS: heparin, porcine 5000 units/ml vial SQ SCH ×2 (08:56→20:53)
[2020-12-21] MEDS: potassium Cl 20 mEq SR tablet PO PRN ×3 (08:57→21:18)
[2020-12-21 10:31] LABS: HBSAG SCREEN Negative (Negative); HEP A AB, IGM Negative (Negative); HEPATITIS C ANTIBODY <0.1 s/co ratio (0.0-0.9)
[2020-12-21 11:00] VITALS: BP 113/82
[2020-12-21] MEDS: dextrose 5%-water 1,000 ML IV SCH ×2 (13:28→23:15)
[2020-12-21 15:00] VITALS: BP 128/80
--- NOTE | 2020-12-21 18:19 | NUR ---
discharge summary and negative covid test faced to [facility]. Addendum: 12/21/20 at 1820 by Brittni Serrano RN faxed*
--- NOTE | 2020-12-21 18:20 | NUR ---
Problems reprioritized. Patient report given, questions answered & plan of care reviewed with Lita ALBA.
[2020-12-21 19:00] VITALS: BP 116/80
[2020-12-21] MEDS: Melatonin 3mg tablet PO SCH (20:53)
[2020-12-21 23:00] VITALS: BP 138/64
[2020-12-22] MEDS: piperacillin/tazo 3.375gm/50ml 50 ML IV SCH ×3 (00:49→15:51)
[2020-12-22 03:00] VITALS: BP 115/64
[2020-12-22 06:00] VITALS: BP 116/82
--- NOTE | 2020-12-22 06:48 | NUR ---
Patient in room PCU 3016. I have received report from jaun ALBA and had the opportunity to ask questions and assume patient care.
[2020-12-22 06:49] LABS: BASOPHILS # (AUTO) 0.1 X10'3 (0-0.2); BASOPHILS % (AUTO) 0.9 % (0-1); EOSINOPHILS # (AUTO) 0.2 X10'3 (0-0.9); EOSINOPHILS % (AUTO) 3.7 % (0-6); HEMOGLOBIN 11.8 g/dl (12.0-16.0); LYMPHOCYTES # (AUTO) 1.5 X10'3 (1.1-4.8); LYMPHOCYTES % (AUTO) 23.2 % (21-51); MEAN CORPUSCULAR HEMOGLOBIN 35.4 PG (27.0-31.0); MEAN CORPUSCULAR HGB CONC 32.8 g/dL (33.0-36.5); MEAN CORPUSCULAR VOLUME 107.8 FL (78-98); MEAN PLATELET VOLUME 8.6 FL (7.4-10.4); MONOCYTES # (AUTO) 0.5 X10'3 (0-0.9); MONOCYTES % (AUTO) 8.7 % (2-12); NEUTROPHILS % (AUTO) 63.5 % (42-75); PLATELET COUNT 307 X10'3 (140-440); RED BLOOD COUNT 3.34 X10'6 (4.20-5.60); RED CELL DISTRIBUTION WIDTH 15.6 % (11.5-14.5); WHITE BLOOD COUNT 6.2 X10'3 (4.5-11.0)
[2020-12-22 07:13] LABS: ALANINE AMINOTRANSFERASE 47 U/L (12-78); ALBUMIN 2.2 G/DL (3.4-5.0); ALBUMIN/GLOBULIN RATIO 0.6 (1.1-1.5); ALKALINE PHOSPHATASE 120 IU/L (46-116); ANION GAP 6 (8-16); ASPARTATE AMINO TRANSFERASE 45 U/L (10-37); BILIRUBIN,TOTAL 0.7 MG/DL (0.1-1.0); BLOOD UREA NITROGEN 4 MG/DL (7-18); BUN/CREATININE RATIO 4.7 (6.6-38.0); CALCIUM 8.7 MG/DL (8.5-10.1); CHLORIDE 112 MMOL/L (99-107); CREATININE 0.85 MG/DL (0.40-0.90); GLUCOSE 90 MG/DL (70-104); MAGNESIUM 2.1 MG/DL (1.5-2.4); PHOSPHORUS 4.6 MG/DL (2.3-4.5); SODIUM 146 MMOL/L (135-145); TOTAL CARBON DIOXIDE 27.9 MMOL/L (24-32); TOTAL PROTEIN 5.8 G/DL (6.4-8.2); eGFR 74 ML/MIN
[2020-12-22] MEDS: K and/or MAG REPLACEMENT MC SCH ×2 (08:00→20:00)
[2020-12-22] MEDS: multivitamins, therapeutics tablet PO SCH (08:30)
[2020-12-22] MEDS: lactobacillus rhamnosus 10,000 MMU CELLS/CAPSULE PO SCH ×2 (08:30→20:21)
[2020-12-22] MEDS: heparin, porcine 5000 units/ml vial SQ SCH ×2 (08:31→20:21)
[2020-12-22] MEDS ORDERED: thiamine 100mg tablet PO SCH (09:18)
[2020-12-22] MEDS ORDERED: folic acid 1mg tablet PO SCH (09:18)
[2020-12-22] MEDS: acetaminophen 325mg tablet PO PRN (09:39)
[2020-12-22 11:00] VITALS: BP 120/84
[2020-12-22] MEDS: dextrose 5%-water 1,000 ML IV SCH (12:35)
--- NOTE | 2020-12-22 18:43 | NUR ---
Patient in room PCU 3016. I have received report from ANJALI Pierson and had the opportunity to ask questions and assume patient care.
--- NOTE | 2020-12-22 18:56 | NUR ---
Problems reprioritized. Patient report given, questions answered & plan of care reviewed with Gail ALBA ICU at [facility]. Reviewed Pt's Hx, DX, current updates on vitals etc. Pt Going to [facility] ICU floor, BED #8. Pt being Eccepted by Dr. Grossman. Report called at [phone]. Wahl in Transfer center needs to be called to be given estimated arrival time at [phone]. NOC nurse Yamila Rn is aware as well as charge nurse Albert.
--- NOTE | 2020-12-22 19:02 | NUR ---
Problems reprioritized. Patient report given, questions answered & plan of care reviewed with ritu ALBA.
[2020-12-22 20:15] VITALS: BP 134/78
[2020-12-22] MEDS: Melatonin 3mg tablet PO SCH (20:21)
[2020-12-22] MEDS ORDERED: HYDROcodone/acetaminophen 5mg/325mg tablet PO PRN (21:30)
[2020-12-22] MEDS ORDERED: morphine 2 MG/ML inj. syringe IV PRN (21:30)
[2020-12-22 22:00] VITALS: BP 120/85
--- NOTE | 2020-12-23 00:28 | NUR ---
Report given to Rosie Maloney RN of [employer]. All patient belongings sent with patient. Addendum: 12/23/20 at 0031 by Carlota Van RN Spoke with Mitch at [facility] at [phone] to give approximate arrival time of 0230.
== END 2020-12-23 00:37 | disposition short-term general hospital (02) | DRG 720 ==
LOC: ER 08:51 → ED HOLD 14:03 → EDBEDREQ 20:48 → PCU 3S 12-15 02:30
PROVIDERS: ADMIT Internal Medicine; ATTEND Internal Medicine
PROC: 4A10X4Z Monitoring of Central Nervous Electrical Activity, External Approach (ICD-10-PCS; principal; 2020-12-20)
DX: A41.9 Sepsis, unspecified organism (principal); G92 Toxic encephalopathy; N17.9 Acute kidney failure, unspecified; E87.0 Hyperosmolality and hypernatremia; K56.7 Ileus, unspecified; E87.6 Hypokalemia; G62.9 Polyneuropathy, unspecified; Z20.822 Contact with and (suspected) exposure to COVID-19; R74.01 Elevation of levels of liver transaminase levels; F10.20 Alcohol dependence, uncomplicated; G93.9 Disorder of brain, unspecified; B96.20 Unspecified Escherichia coli [E. coli] as the cause of diseases classified elsewhere; R15.9 Full incontinence of feces; R27.0 Ataxia, unspecified; K52.9 Noninfective gastroenteritis and colitis, unspecified; N39.0 Urinary tract infection, site not specified; Z98.84 Bariatric surgery status
CPT/HCPCS: 36415; 70544; 70547; 70553; 74176; 76700; 80053; 80202; 80305; 80320; 81001; 81025; 82140; 82607; 82948; 83605; 83735; 84100; 84145; 84425; 84443; 85007; 85025; 86592; 86703; 86705; 86706; 86709; 86803; 87040; 87077; 87081; 87088; 87186; 87340; 87635; 93005; 93306; 93880; 95816; 96361; 96365; 96375; 97110; 97161; 97530; 99285; A9575; C9113; G0378; J1644; J2060; J2405; J2543; J3370; J3411; J3480; J3490; J7030; J7070

== ENCOUNTER 2021-01-07 14:15 | Inpatient (IN) | payer MEDICAID ==
[~2021-01-07] VITALS: Ht 170.2 cm; Wt 79.0 kg
[~2021-01-07 14:15] MED LIST: NO HOME MEDS
[2021-01-07 22:30] VITALS: BP 139/88
[2021-01-07] MEDS ORDERED: ACET-1015 PO (23:26)
[2021-01-07] MEDS ORDERED: GABA300C PO (23:26)
[2021-01-07] MEDS ORDERED: POLY17PO10 PO (23:26)
[2021-01-07] MEDS ORDERED: HEPA1DIS10 SQ (23:26)
[2021-01-07] MEDS ORDERED: FLUC200T28 PO (23:26)
[2021-01-07] MEDS ORDERED: [UNRECOGNIZED DRUG - CODE] PO (23:26)
[2021-01-07] MEDS ORDERED: THIA50TA10 PO (23:26)
[2021-01-07] MEDS ORDERED: MULT-1085 PO (23:26)
[2021-01-07] MEDS ORDERED: QUET25TA PO (23:26)
[2021-01-07] MEDS ORDERED: SENN-25 PO (23:26)
[2021-01-07] MEDS ORDERED: VITA-347 PO (23:26)
[2021-01-07] MEDS ORDERED: FLO0.4C PO (23:26)
--- NOTE | 2021-01-08 00:20 | NUR ---
Dr. Crane here,seen and examined pt,will enter admission orders.
[2021-01-08] MEDS ORDERED: magnesium 2GM in 50ml NS 50 ML IV PRN (00:25)
[2021-01-08] MEDS ORDERED: morphine 2 MG/ML inj. syringe IV PRN (00:25)
[2021-01-08] MEDS ORDERED: mag hydrox/Alum hydrox/simeth 30ml oral suspension PO PRN (00:25)
[2021-01-08] MEDS ORDERED: ondansetron/PF 4mg/2ml inj IV PRN (00:25)
[2021-01-08] MEDS ORDERED: potassium Cl 20 mEq SR tablet PO PRN (00:25)
[2021-01-08] MEDS ORDERED: acetaminophen 325mg tablet PO PRN ×2 (00:25)
[2021-01-08] MEDS ORDERED: HYDROcodone/acetaminophen 5mg/325mg tablet PO PRN (00:25)
[2021-01-08] MEDS ORDERED: normal saline 1000ml 1,000 ML IV SCH (00:25)
[2021-01-08] MEDS ORDERED: potassium Cl 40MEQ/1/2NS 520ml 520 ML IV PRN ×2 (00:25)
[2021-01-08] MEDS ORDERED: magnesium Cl slow-release 64mg tablet PO PRN (00:25)
[2021-01-08] MEDS ORDERED: magnesium hydroxide 30ml (MOM) UD suspension PO PRN (00:25)
[2021-01-08] MEDS ORDERED: magnesium 4gm in 100ml NS 100 ML IV PRN (00:25)
[2021-01-08 02:00] VITALS: BP 122/88
[2021-01-08 02:53] LABS: BASOPHILS # (AUTO) 0.1 X10'3 (0-0.2); BASOPHILS % (AUTO) 0.6 % (0-1); EOSINOPHILS # (AUTO) 0.3 X10'3 (0-0.9); EOSINOPHILS % (AUTO) 3.3 % (0-6); HEMATOCRIT 36.9 % (35.0-45.0); HEMOGLOBIN 11.9 g/dl (12.0-16.0); LYMPHOCYTES # (AUTO) 1.5 X10'3 (1.1-4.8); LYMPHOCYTES % (AUTO) 17.8 % (21-51); MEAN CORPUSCULAR HEMOGLOBIN 32.7 PG (27.0-31.0); MEAN CORPUSCULAR HGB CONC 32.3 g/dL (33.0-36.5); MEAN CORPUSCULAR VOLUME 101.1 FL (78-98); MEAN PLATELET VOLUME 8.1 FL (7.4-10.4); MONOCYTES # (AUTO) 0.7 X10'3 (0-0.9); MONOCYTES % (AUTO) 8.5 % (2-12); NEUTROPHILS % (AUTO) 69.8 % (42-75); PLATELET COUNT 417 X10'3 (140-440); RED BLOOD COUNT 3.65 X10'6 (4.20-5.60); RED CELL DISTRIBUTION WIDTH 14.2 % (11.5-14.5); WHITE BLOOD COUNT 8.6 X10'3 (4.5-11.0)
[2021-01-08 03:11] LABS: ALANINE AMINOTRANSFERASE 33 U/L (12-78); ALBUMIN 2.9 G/DL (3.4-5.0); ALBUMIN/GLOBULIN RATIO 0.7 (1.1-1.5); ALKALINE PHOSPHATASE 102 IU/L (46-116); ANION GAP 15 (8-16); ASPARTATE AMINO TRANSFERASE 33 U/L (10-37); BILIRUBIN,TOTAL 0.9 MG/DL (0.1-1.0); BLOOD UREA NITROGEN 6 MG/DL (7-18); BUN/CREATININE RATIO 10.3 (6.6-38.0); CALCIUM 8.2 MG/DL (8.5-10.1); CHLORIDE 103 MMOL/L (99-107); CREATININE 0.58 MG/DL (0.40-0.90); GLUCOSE 76 MG/DL (70-104); POTASSIUM 3.4 MMOL/L (3.5-5.1); SODIUM 139 MMOL/L (135-145); TOTAL CARBON DIOXIDE 20.8 MMOL/L (24-32); TOTAL PROTEIN 6.9 G/DL (6.4-8.2); eGFR > 90 ML/MIN
[2021-01-08] MEDS ORDERED: non-formulary drug (Acetaminophen 2 TAB) PO PRN (05:50)
--- NOTE | 2021-01-08 07:00 | NUR ---
Patient in room ORTHO 4010. I have received report from TESSIE RN and had the opportunity to ask questions and assume patient care.
[2021-01-08] MEDS ORDERED: K and/or MAG REPLACEMENT MC SCH (08:00)
[2021-01-08] MEDS: polyethylene glycol 3350 17gm powd pack PO SCH (08:00)
[2021-01-08] MEDS: thiamine 100mg tablet PO SCH (08:27)
[2021-01-08] MEDS: multivitamins, therapeutics tablet PO SCH (08:27)
[2021-01-08] MEDS: heparin, porcine 5000 units/ml vial SQ SCH ×2 (08:29→20:00)
[2021-01-08] MEDS: potassium Cl 20 mEq SR tablet PO PRN ×2 (08:31→13:16)
[2021-01-08] MEDS: fluconazole 100mg tablet PO SCH (09:54)
[2021-01-08] MEDS: cephalexin 250mg capsule PO SCH ×3 (09:55→21:46)
[2021-01-08 10:00] VITALS: BP 138/92
--- NOTE | 2021-01-08 10:56 | NUR ---
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 Pt has no significant weakness noted, no edema, no scaled wt this admit or recent prior admit hx, and PO 25% first meal this AM on regular diet per EMR. RN reports pt has no issues chewing/swallowing. Receiving thiamin and MVI w/ MCV 101 per EMR. Pt lacks minimum malnutrition criteria at this time. Will monitor for additional malnutrition criteria this admit. Addendum: 01/08/21 at [address] Amended: Links added.
--- NOTE | 2021-01-08 13:24 | NUR ---
Page Sent PAGER ID: [phone] MESSAGE: [id number] JOSE PT PULLED OUT IV. CAN HER FLUIDS BE DISCONTINUED? I DIDNT SEE ANY ANTIBIOTICS. THANKS ROXANA [id number]
[2021-01-08] MEDS ORDERED: ondansetron 4mg rapidly disintigrating tab PO PRN (13:25)
--- NOTE | 2021-01-08 14:30 | NUR ---
Page Sent promotional table spacer PAGER ID: [phone] MESSAGE: [id number] Jesus GARCIA. Yojana ALEJANDRA DC DO YOU WANT ME TO GIVE PT LAST REPLACEMENT A ONE TIME ORDER? OR IS SHE OK NOT TO HAVE LAST ONE? ROXANA [id number]
--- NOTE | 2021-01-08 17:05 | NUR ---
Page Sent PAGER ID: [phone] MESSAGE: [id number] Jesus GARCIA, CAN I DO A MIS NURSE ORDER NOT NEEDING IV? OR DO YOU WANT AN IV IN THE PT STILL? SHE PULLED THE LAST ONE OUT EARLIER. THANKS ROXANA [id number]
[2021-01-08 18:00] VITALS: BP 131/98
--- NOTE | 2021-01-08 18:26 | NUR ---
Problems reprioritized. Patient report given, questions answered & plan of care reviewed with STEVIE ALBA.
--- NOTE | 2021-01-08 18:45 | NUR ---
Patient in room ORTHO 4010. I have received report from Martita ALBA and had the opportunity to ask questions and assume patient care.
[2021-01-08] MEDS ORDERED: temazepam 15mg capsule PO PRN (21:00)
[2021-01-08] MEDS: QUEtiapine 25mg tablet PO SCH (21:45)
[2021-01-08] MEDS: gabapentin 300mg capsule PO SCH (21:45)
[2021-01-08] MEDS: lactobacillus rhamnosus 10,000 MMU CELLS/CAPSULE PO SCH (21:46)
[2021-01-08 22:00] VITALS: BP 133/85
[2021-01-09] MEDS: cephalexin 250mg capsule PO SCH ×4 (01:44→22:02)
[2021-01-09 02:30] VITALS: BP 117/79
[2021-01-09 06:23] VITALS: BP 129/82
--- NOTE | 2021-01-09 06:23 | NUR ---
Problems reprioritized. Patient report given, questions answered & plan of care reviewed with Polly ALBA.
--- NOTE | 2021-01-09 06:23 | NUR ---
Patient in room ORTHO 4010. I have received report from Lisbet ALBA and had the opportunity to ask questions and assume patient care.
[2021-01-09 07:13] LABS: BASOPHILS # (AUTO) 0.1 X10'3 (0-0.2); EOSINOPHILS # (AUTO) 0.4 X10'3 (0-0.9); EOSINOPHILS % (AUTO) 5.9 % (0-6); HEMATOCRIT 34.5 % (35.0-45.0); HEMOGLOBIN 11.6 g/dl (12.0-16.0); LYMPHOCYTES # (AUTO) 1.7 X10'3 (1.1-4.8); LYMPHOCYTES % (AUTO) 22.1 % (21-51); MEAN CORPUSCULAR HEMOGLOBIN 33.1 PG (27.0-31.0); MEAN CORPUSCULAR HGB CONC 33.5 g/dL (33.0-36.5); MEAN CORPUSCULAR VOLUME 98.9 FL (78-98); MEAN PLATELET VOLUME 8.2 FL (7.4-10.4); MONOCYTES # (AUTO) 0.7 X10'3 (0-0.9); MONOCYTES % (AUTO) 9.7 % (2-12); NEUTROPHILS # (AUTO) 4.6 X10'3 (1.8-7.7); NEUTROPHILS % (AUTO) 61.3 % (42-75); PLATELET COUNT 423 X10'3 (140-440); RED BLOOD COUNT 3.49 X10'6 (4.20-5.60); RED CELL DISTRIBUTION WIDTH 14.7 % (11.5-14.5); WHITE BLOOD COUNT 7.6 X10'3 (4.5-11.0)
[2021-01-09 07:50] LABS: ALANINE AMINOTRANSFERASE 33 U/L (12-78); ALBUMIN 2.9 G/DL (3.4-5.0); ALBUMIN/GLOBULIN RATIO 0.8 (1.1-1.5); ALKALINE PHOSPHATASE 104 IU/L (46-116); ANION GAP 18 (8-16); ASPARTATE AMINO TRANSFERASE 38 U/L (10-37); BILIRUBIN,TOTAL 0.8 MG/DL (0.1-1.0); BLOOD UREA NITROGEN 5 MG/DL (7-18); BUN/CREATININE RATIO 8.8 (6.6-38.0); CALCIUM 8.5 MG/DL (8.5-10.1); CHLORIDE 105 MMOL/L (99-107); CREATININE 0.57 MG/DL (0.40-0.90); GLUCOSE 78 MG/DL (70-104); POTASSIUM 3.8 MMOL/L (3.5-5.1); SODIUM 140 MMOL/L (135-145); TOTAL PROTEIN 6.7 G/DL (6.4-8.2); eGFR > 90 ML/MIN
[2021-01-09] MEDS: multivitamins, therapeutics tablet PO SCH (08:00)
[2021-01-09] MEDS: polyethylene glycol 3350 17gm powd pack PO SCH (08:00)
[2021-01-09] MEDS: thiamine 100mg tablet PO SCH (08:00)
[2021-01-09] MEDS: lactobacillus rhamnosus 10,000 MMU CELLS/CAPSULE PO SCH ×2 (08:00→22:01)
[2021-01-09] MEDS: heparin, porcine 5000 units/ml vial SQ SCH ×2 (08:03→22:03)
--- NOTE | 2021-01-09 08:16 | NUR ---
Patient is very sedated after getting both seroquel and a restoril last night. Not cooperating with trying to take morning medications, will ask pharmacy to send new doses of keflex and diflucan in hopes that she will wake up soon. She is alert and oriented x1, VSS and arousable however patient is somulent at this time.
--- NOTE | 2021-01-09 09:03 | NUR ---
PAGER ID: [phone] MESSAGE: [phone], Jass today is my first day with her, she asked for a restoril with her Seroquel last night and has been pretty sedated. She is able to open her eyes and tell me her name. Given her neuro history just sending an FYI. Polly [phone]
[2021-01-09] MEDS: sodium bicarbonate (8.4%) inj. 100 MEQ in dextrose 5%-water 1,000 ML IV SCH ×2 (09:41→22:02)
[2021-01-09 10:40] VITALS: BP 119/85
[2021-01-09 12:12] LABS: CLARITY,URINE CLOUDY (Clear); COLOR,URINE YELLOW (Yellow); GLUCOSE, URINE NEGATIVE (Neg); KETONES,URINE >=80 mg/dl (Neg); LEUKOCYTE ESTERASE ,URINE NEGATIVE (Neg); NITRITES, URINE NEGATIVE (Neg); OCCULT BLOOD,URINE NEGATIVE (Neg); PROTEIN,URINE NEGATIVE (Neg)
[2021-01-09 12:14] LABS: UA COLLECTION TYPE NON-SPECIFIED
[2021-01-09 12:15] LABS: SQUAMOUS EPITHELIAL CELL,UR MANY /LPF (FEW)
[2021-01-09 12:16] LABS: BACTERIA,URINE FEW /HPF (Neg); RBC,URINE 0-2 /HPF (0-2)
[2021-01-09] MEDS: fluconazole 100mg tablet PO SCH (13:25)
[2021-01-09 14:00] VITALS: BP 124/78
[2021-01-09 18:00] VITALS: BP 109/76
--- NOTE | 2021-01-09 18:16 | NUR ---
Problems reprioritized. Patient report given, questions answered & plan of care reviewed with Lisbet ALBA.
--- NOTE | 2021-01-09 18:45 | NUR ---
Patient in room ORTHO 4010. I have received report from Polly ALBA and had the opportunity to ask questions and assume patient care.
[2021-01-09 22:00] VITALS: BP 127/74
[2021-01-09] MEDS: QUEtiapine 25mg tablet PO SCH (22:02)
[2021-01-09] MEDS: gabapentin 300mg capsule PO SCH (22:02)
[2021-01-10] MEDS: cephalexin 250mg capsule PO SCH ×4 (03:40→20:45)
--- NOTE | 2021-01-10 06:21 | NUR ---
Problems reprioritized. Patient report given, questions answered & plan of care reviewed with Polly ALBA.
--- NOTE | 2021-01-10 06:29 | NUR ---
Patient in room ORTHO 4010. I have received report from Lisbet ALBA and had the opportunity to ask questions and assume patient care.
[2021-01-10] MEDS: sodium bicarbonate (8.4%) inj. 100 MEQ in dextrose 5%-water 1,000 ML IV SCH (06:35)
[2021-01-10 06:43] LABS: BASOPHILS # (AUTO) 0.1 X10'3 (0-0.2); LYMPHOCYTES # (AUTO) 1.6 X10'3 (1.1-4.8)
[2021-01-10 06:44] VITALS: BP 131/91
[2021-01-10 06:45] LABS: BASOPHILS % (AUTO) 1.1 % (0-1); EOSINOPHILS # (AUTO) 0.4 X10'3 (0-0.9); HEMATOCRIT 35.1 % (35.0-45.0); HEMOGLOBIN 11.5 g/dl (12.0-16.0); LYMPHOCYTES % (AUTO) 26.3 % (21-51); MEAN CORPUSCULAR HEMOGLOBIN 32.7 PG (27.0-31.0); MEAN CORPUSCULAR HGB CONC 32.9 g/dL (33.0-36.5); MEAN CORPUSCULAR VOLUME 99.4 FL (78-98); MEAN PLATELET VOLUME 8.1 FL (7.4-10.4); MONOCYTES # (AUTO) 0.6 X10'3 (0-0.9); MONOCYTES % (AUTO) 10.4 % (2-12); NEUTROPHILS # (AUTO) 3.4 X10'3 (1.8-7.7); NEUTROPHILS % (AUTO) 56.2 % (42-75); PLATELET COUNT 406 X10'3 (140-440); RED BLOOD COUNT 3.53 X10'6 (4.20-5.60); RED CELL DISTRIBUTION WIDTH 14.6 % (11.5-14.5); WHITE BLOOD COUNT 6.1 X10'3 (4.5-11.0)
[2021-01-10 06:55] LABS: ALANINE AMINOTRANSFERASE 33 U/L (12-78); ALBUMIN 2.8 G/DL (3.4-5.0); ALBUMIN/GLOBULIN RATIO 0.8 (1.1-1.5); ALKALINE PHOSPHATASE 104 IU/L (46-116); ANION GAP 10 (8-16); ASPARTATE AMINO TRANSFERASE 29 U/L (10-37); BILIRUBIN,TOTAL 0.7 MG/DL (0.1-1.0); BLOOD UREA NITROGEN 3 MG/DL (7-18); BUN/CREATININE RATIO 4.8 (6.6-38.0); CALCIUM 8.7 MG/DL (8.5-10.1); CHLORIDE 105 MMOL/L (99-107); CREATININE 0.63 MG/DL (0.40-0.90); GLUCOSE 110 MG/DL (70-104); POTASSIUM 3.1 MMOL/L (3.5-5.1); SODIUM 144 MMOL/L (135-145); TOTAL CARBON DIOXIDE 28.9 MMOL/L (24-32); TOTAL PROTEIN 6.4 G/DL (6.4-8.2); eGFR > 90 ML/MIN
[2021-01-10] MEDS ORDERED: magnesium Cl slow-release 64mg tablet PO PRN (08:15)
[2021-01-10] MEDS ORDERED: magnesium 4gm in 100ml NS 100 ML IV PRN (08:15)
[2021-01-10] MEDS ORDERED: potassium Cl 40MEQ/1/2NS 520ml 520 ML IV PRN (08:15)
[2021-01-10] MEDS ORDERED: potassium Cl 20 mEq SR tablet PO PRN (08:15)
[2021-01-10] MEDS: heparin, porcine 5000 units/ml vial SQ SCH ×2 (09:26→20:45)
[2021-01-10] MEDS: thiamine 100mg tablet PO SCH (09:26)
[2021-01-10] MEDS: potassium Cl 20 mEq SR tablet PO PRN ×3 (09:26→17:10)
[2021-01-10] MEDS: lactobacillus rhamnosus 10,000 MMU CELLS/CAPSULE PO SCH ×2 (09:26→20:45)
[2021-01-10] MEDS: polyethylene glycol 3350 17gm powd pack PO SCH (09:27)
[2021-01-10] MEDS: multivitamins, therapeutics tablet PO SCH (09:27)
[2021-01-10] MEDS: fluconazole 100mg tablet PO SCH (09:27)
[2021-01-10 10:00] VITALS: BP 129/84
--- NOTE | 2021-01-10 11:48 | NUR ---
PAGER ID: [phone] MESSAGE: [id number] MRI is done and report is back. Polly [phone]
--- NOTE | 2021-01-10 13:31 | NUR ---
PAGER ID: [phone] MESSAGE: Jass Quinn. Has been in sinus tach in the 90s-100s. Within the last hour heart rate has been 130-140. ki [id number]
[2021-01-10] MEDS ORDERED: atenolol 25mg tablet PO ONE (13:40)
[2021-01-10 13:45] LABS: MAGNESIUM 1.5 MG/DL (1.5-2.4)
[2021-01-10 14:00] VITALS: BP 121/83
[2021-01-10 18:00] VITALS: BP 109/77
--- NOTE | 2021-01-10 18:31 | NUR ---
Problems reprioritized. Patient report given, questions answered & plan of care reviewed with Lisbet ALBA.
--- NOTE | 2021-01-10 18:40 | NUR ---
Patient in room ORTHO 4010. I have received report from Polly ALBA and had the opportunity to ask questions and assume patient care.
[2021-01-10] MEDS ORDERED: GADOTERATE MEGLUMINE 7.5 MMOL/15 ML VIAL IV ONE (19:44)
[2021-01-10] MEDS: K and/or MAG REPLACEMENT MC SCH (20:00)
[2021-01-10] MEDS: QUEtiapine 25mg tablet PO SCH (20:45)
[2021-01-10] MEDS: gabapentin 300mg capsule PO SCH (20:45)
[2021-01-10 22:00] VITALS: BP 112/71
[2021-01-11] MEDS: cephalexin 250mg capsule PO SCH ×4 (01:53→20:08)
--- NOTE | 2021-01-11 06:18 | NUR ---
Problems reprioritized. Patient report given, questions answered & plan of care reviewed with Polly ALBA.
[2021-01-11 06:37] VITALS: BP 114/78
--- NOTE | 2021-01-11 06:37 | NUR ---
Patient in room ORTHO 4010. I have received report from Lisbet ALBA and had the opportunity to ask questions and assume patient care.
[2021-01-11 06:55] LABS: BASOPHILS # (AUTO) 0.1 X10'3 (0-0.2); EOSINOPHILS # (AUTO) 0.2 X10'3 (0-0.9); EOSINOPHILS % (AUTO) 4.1 % (0-6); HEMATOCRIT 34.8 % (35.0-45.0); HEMOGLOBIN 11.7 g/dl (12.0-16.0); LYMPHOCYTES # (AUTO) 1.4 X10'3 (1.1-4.8); LYMPHOCYTES % (AUTO) 25.4 % (21-51); MEAN CORPUSCULAR HEMOGLOBIN 32.9 PG (27.0-31.0); MEAN CORPUSCULAR HGB CONC 33.7 g/dL (33.0-36.5); MEAN CORPUSCULAR VOLUME 97.8 FL (78-98); MEAN PLATELET VOLUME 8.4 FL (7.4-10.4); MONOCYTES # (AUTO) 0.8 X10'3 (0-0.9); MONOCYTES % (AUTO) 13.9 % (2-12); NEUTROPHILS # (AUTO) 3.1 X10'3 (1.8-7.7); NEUTROPHILS % (AUTO) 55.6 % (42-75); PLATELET COUNT 400 X10'3 (140-440); RED BLOOD COUNT 3.56 X10'6 (4.20-5.60); RED CELL DISTRIBUTION WIDTH 14.5 % (11.5-14.5); WHITE BLOOD COUNT 5.6 X10'3 (4.5-11.0)
[2021-01-11 07:18] LABS: ALANINE AMINOTRANSFERASE 29 U/L (12-78); ALBUMIN 2.7 G/DL (3.4-5.0); ALBUMIN/GLOBULIN RATIO 0.8 (1.1-1.5); ALKALINE PHOSPHATASE 100 IU/L (46-116); ANION GAP 12 (8-16); ASPARTATE AMINO TRANSFERASE 28 U/L (10-37); BILIRUBIN,TOTAL 0.7 MG/DL (0.1-1.0); BLOOD UREA NITROGEN 7 MG/DL (7-18); BUN/CREATININE RATIO 11.7 (6.6-38.0); CALCIUM 8.7 MG/DL (8.5-10.1); CHLORIDE 107 MMOL/L (99-107); GLUCOSE 82 MG/DL (70-104); POTASSIUM 3.5 MMOL/L (3.5-5.1); SODIUM 145 MMOL/L (135-145); TOTAL CARBON DIOXIDE 26.1 MMOL/L (24-32); TOTAL PROTEIN 6.2 G/DL (6.4-8.2); eGFR > 90 ML/MIN
[2021-01-11] MEDS: K and/or MAG REPLACEMENT MC SCH ×2 (08:00→20:00)
[2021-01-11] MEDS: polyethylene glycol 3350 17gm powd pack PO SCH (08:00)
[2021-01-11] MEDS: lactobacillus rhamnosus 10,000 MMU CELLS/CAPSULE PO SCH ×2 (09:43→20:08)
[2021-01-11] MEDS: fluconazole 100mg tablet PO SCH (09:43)
[2021-01-11] MEDS: heparin, porcine 5000 units/ml vial SQ SCH ×2 (09:43→20:10)
[2021-01-11] MEDS: thiamine 100mg tablet PO SCH (09:43)
[2021-01-11] MEDS: multivitamins, therapeutics tablet PO SCH (09:43)
[2021-01-11 10:19] VITALS: BP 109/85
[2021-01-11 18:00] VITALS: BP 103/70
--- NOTE | 2021-01-11 18:00 | NUR ---
Patient in room ORTHO 4006. I have received report from Polly ALBA and had the opportunity to ask questions and assume patient care. Addendum: 01/11/21 at 1859 by Isabel Kaye RN Amended: Links added.
--- NOTE | 2021-01-11 18:24 | NUR ---
Problems reprioritized. Patient report given, questions answered & plan of care reviewed with Isabel ALBA.
[2021-01-11] MEDS: QUEtiapine 25mg tablet PO SCH (20:08)
[2021-01-11] MEDS: gabapentin 300mg capsule PO SCH (20:08)
[2021-01-11 22:00] VITALS: BP 105/71
--- NOTE | 2021-01-11 23:20 | NUR ---
Offered pt. to use the bedside commode; pt. declined. Addendum: 01/12/21 at 0722 by Isabel Kaye RN Amended: Links added.
[2021-01-12] MEDS: cephalexin 250mg capsule PO SCH ×4 (03:40→21:07)
--- NOTE | 2021-01-12 05:00 | NUR ---
Bladder scanned pt. for possible urinary retention but scan only revealed 240ml. assisted pt. to bedside commode to void; pt was able to void. Addendum: 01/12/21 at 0724 by Isabel Kaye RN Amended: Links added.
[2021-01-12 06:00] VITALS: BP 126/75
--- NOTE | 2021-01-12 06:00 | NUR ---
Problems reprioritized. Patient report given, questions answered & plan of care reviewed with Yessy ALBA. Addendum: 01/12/21 at 0648 by Isabel Kaye RN Amended: Links added.
--- NOTE | 2021-01-12 06:10 | NUR ---
RECEIVED REPORT FROM ANJALI ARMSTRONG
[2021-01-12 07:05] LABS: BASOPHILS # (AUTO) 0.1 X10'3 (0-0.2); BASOPHILS % (AUTO) 1.2 % (0-1); EOSINOPHILS # (AUTO) 0.2 X10'3 (0-0.9); EOSINOPHILS % (AUTO) 3.9 % (0-6); HEMATOCRIT 38.8 % (35.0-45.0); HEMOGLOBIN 12.5 g/dl (12.0-16.0); LYMPHOCYTES # (AUTO) 1.9 X10'3 (1.1-4.8); LYMPHOCYTES % (AUTO) 30.9 % (21-51); MEAN CORPUSCULAR HGB CONC 32.1 g/dL (33.0-36.5); MEAN CORPUSCULAR VOLUME 99.5 FL (78-98); MEAN PLATELET VOLUME 8.6 FL (7.4-10.4); MONOCYTES # (AUTO) 0.7 X10'3 (0-0.9); MONOCYTES % (AUTO) 11.3 % (2-12); NEUTROPHILS # (AUTO) 3.2 X10'3 (1.8-7.7); NEUTROPHILS % (AUTO) 52.7 % (42-75); PLATELET COUNT 444 X10'3 (140-440); RED CELL DISTRIBUTION WIDTH 14.7 % (11.5-14.5); WHITE BLOOD COUNT 6.2 X10'3 (4.5-11.0)
[2021-01-12 07:18] LABS: ALANINE AMINOTRANSFERASE 30 U/L (12-78); ALBUMIN 3.1 G/DL (3.4-5.0); ALBUMIN/GLOBULIN RATIO 0.8 (1.1-1.5); ALKALINE PHOSPHATASE 108 IU/L (46-116); ANION GAP 15 (8-16); ASPARTATE AMINO TRANSFERASE 28 U/L (10-37); BILIRUBIN,TOTAL 0.7 MG/DL (0.1-1.0); BLOOD UREA NITROGEN 12 MG/DL (7-18); BUN/CREATININE RATIO 17.4 (6.6-38.0); CALCIUM 9.2 MG/DL (8.5-10.1); CHLORIDE 107 MMOL/L (99-107); CREATININE 0.69 MG/DL (0.40-0.90); GLUCOSE 86 MG/DL (70-104); POTASSIUM 4.1 MMOL/L (3.5-5.1); SODIUM 147 MMOL/L (135-145); TOTAL CARBON DIOXIDE 24.9 MMOL/L (24-32); TOTAL PROTEIN 6.9 G/DL (6.4-8.2); eGFR > 90 ML/MIN
[2021-01-12] MEDS: fluconazole 100mg tablet PO SCH (07:48)
[2021-01-12] MEDS: lactobacillus rhamnosus 10,000 MMU CELLS/CAPSULE PO SCH ×2 (07:48→21:07)
[2021-01-12] MEDS: multivitamins, therapeutics tablet PO SCH (07:49)
[2021-01-12] MEDS: thiamine 100mg tablet PO SCH (07:50)
[2021-01-12] MEDS: polyethylene glycol 3350 17gm powd pack PO SCH (07:50)
[2021-01-12] MEDS: heparin, porcine 5000 units/ml vial SQ SCH ×2 (07:54→21:08)
[2021-01-12] MEDS: K and/or MAG REPLACEMENT MC SCH ×2 (07:57→20:00)
--- NOTE | 2021-01-12 07:57 | NUR ---
pt bracelet not scanning meds into [facility], checked meds prior to admin, continue to monitor
[2021-01-12] MEDS ORDERED: atenolol 25mg tablet PO ONE (08:45)
[2021-01-12] MEDS: sodium chloride 0.45% 1,000 ML IV SCH ×2 (09:35→21:21)
[2021-01-12 10:00] VITALS: BP 117/72
--- NOTE | 2021-01-12 14:46 | NUR ---
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 Pt's meal intake has been low, mostly 25% of meals on Regular diet. Pt reports that her appetite "just isn't there" though she likes most foods and reports no food preferences. Pt agreeable to trying ONS. No N/V/D noted, LBM 9/3 receiving routine Miralax. Will continue to monitor. Recommend 1. Continue Regular diet as tolerated 2. Ensure Enlive TID to provide 1050kcals and 60g protein if consumed 100% 3. Bowel care per rx 4. Weekly wts Addendum: 01/12/21 at [address] Amended: Links added.
[2021-01-12] MEDS: lactose-reduced food (Ensure Enlive) - 237ml bottle PO SCH (18:20)
[2021-01-12 18:30] VITALS: BP 107/78
--- NOTE | 2021-01-12 18:38 | NUR ---
gave report to august,
[2021-01-12] MEDS: QUEtiapine 25mg tablet PO SCH (21:07)
[2021-01-12] MEDS: gabapentin 300mg capsule PO SCH (21:07)
[2021-01-12 22:00] VITALS: BP 108/74
[2021-01-13] MEDS: cephalexin 250mg capsule PO SCH ×4 (04:25→20:11)
[2021-01-13] MEDS: sodium chloride 0.45% 1,000 ML IV SCH ×3 (04:45→20:22)
[2021-01-13 06:15] LABS: BASOPHILS # (AUTO) 0.1 X10'3 (0-0.2); EOSINOPHILS # (AUTO) 0.3 X10'3 (0-0.9); EOSINOPHILS % (AUTO) 5.2 % (0-6); HEMATOCRIT 32.9 % (35.0-45.0); HEMOGLOBIN 10.6 g/dl (12.0-16.0); LYMPHOCYTES # (AUTO) 1.3 X10'3 (1.1-4.8); LYMPHOCYTES % (AUTO) 26.3 % (21-51); MEAN CORPUSCULAR HEMOGLOBIN 31.8 PG (27.0-31.0); MEAN CORPUSCULAR HGB CONC 32.2 g/dL (33.0-36.5); MEAN CORPUSCULAR VOLUME 98.8 FL (78-98); MEAN PLATELET VOLUME 8.3 FL (7.4-10.4); MONOCYTES # (AUTO) 0.5 X10'3 (0-0.9); MONOCYTES % (AUTO) 10.6 % (2-12); NEUTROPHILS # (AUTO) 2.8 X10'3 (1.8-7.7); NEUTROPHILS % (AUTO) 56.9 % (42-75); PLATELET COUNT 316 X10'3 (140-440); RED BLOOD COUNT 3.33 X10'6 (4.20-5.60); RED CELL DISTRIBUTION WIDTH 14.6 % (11.5-14.5); WHITE BLOOD COUNT 4.9 X10'3 (4.5-11.0)
[2021-01-13 06:25] LABS: ALANINE AMINOTRANSFERASE 25 U/L (12-78); ALBUMIN 2.6 G/DL (3.4-5.0); ALBUMIN/GLOBULIN RATIO 0.8 (1.1-1.5); ALKALINE PHOSPHATASE 94 IU/L (46-116); ANION GAP 14 (8-16); ASPARTATE AMINO TRANSFERASE 25 U/L (10-37); BILIRUBIN,TOTAL 0.6 MG/DL (0.1-1.0); BLOOD UREA NITROGEN 6 MG/DL (7-18); BUN/CREATININE RATIO 9.2 (6.6-38.0); CALCIUM 8.3 MG/DL (8.5-10.1); CHLORIDE 107 MMOL/L (99-107); CREATININE 0.65 MG/DL (0.40-0.90); GLUCOSE 75 MG/DL (70-104); POTASSIUM 3.5 MMOL/L (3.5-5.1); SODIUM 143 MMOL/L (135-145); TOTAL CARBON DIOXIDE 22.3 MMOL/L (24-32); eGFR > 90 ML/MIN
[2021-01-13 07:00] VITALS: BP 113/76
[2021-01-13] MEDS: lactobacillus rhamnosus 10,000 MMU CELLS/CAPSULE PO SCH ×2 (07:18→20:11)
[2021-01-13] MEDS: fluconazole 100mg tablet PO SCH (07:19)
[2021-01-13] MEDS: atenolol 25mg tablet PO SCH (07:19)
[2021-01-13] MEDS: heparin, porcine 5000 units/ml vial SQ SCH ×2 (07:19→20:11)
[2021-01-13] MEDS: thiamine 100mg tablet PO SCH (07:20)
[2021-01-13] MEDS: multivitamins, therapeutics tablet PO SCH (07:20)
[2021-01-13] MEDS: polyethylene glycol 3350 17gm powd pack PO SCH (07:27)
[2021-01-13] MEDS: K and/or MAG REPLACEMENT MC SCH ×2 (08:00→20:00)
[2021-01-13] MEDS: lactose-reduced food (Ensure Enlive) - 237ml bottle PO SCH ×3 (08:31→18:02)
[2021-01-13 10:00] VITALS: BP 109/76
[2021-01-13 18:00] VITALS: BP 122/87
--- NOTE | 2021-01-13 18:09 | NUR ---
Problems reprioritized. Patient report given, questions answered & plan of care reviewed with Genet ALBA.
[2021-01-13] MEDS: gabapentin 300mg capsule PO SCH (20:11)
[2021-01-13] MEDS: QUEtiapine 25mg tablet PO SCH (20:11)
[2021-01-13 22:00] VITALS: BP 102/67
[2021-01-14] MEDS: cephalexin 250mg capsule PO SCH ×4 (04:18→21:18)
[2021-01-14 05:30] VITALS: BP 113/78
--- NOTE | 2021-01-14 06:55 | NUR ---
Patient in room ORTHO 4010A. I have received report from ANJALI KURTZ and had the opportunity to ask questions and assume patient care.
[2021-01-14] MEDS: heparin, porcine 5000 units/ml vial SQ SCH ×2 (07:59→21:18)
[2021-01-14] MEDS: K and/or MAG REPLACEMENT MC SCH ×2 (08:00→20:00)
[2021-01-14] MEDS: fluconazole 100mg tablet PO SCH (08:00)
[2021-01-14] MEDS: lactobacillus rhamnosus 10,000 MMU CELLS/CAPSULE PO SCH ×2 (08:00→21:17)
[2021-01-14] MEDS: thiamine 100mg tablet PO SCH (08:01)
[2021-01-14] MEDS: multivitamins, therapeutics tablet PO SCH (08:01)
[2021-01-14] MEDS: polyethylene glycol 3350 17gm powd pack PO SCH (08:02)
[2021-01-14] MEDS: atenolol 25mg tablet PO SCH (08:02)
[2021-01-14] MEDS: lactose-reduced food (Ensure Enlive) - 237ml bottle PO SCH ×3 (08:17→18:06)
[2021-01-14 10:00] VITALS: BP 110/59
[2021-01-14] MEDS: sodium chloride 0.45% 1,000 ML IV SCH ×2 (11:16→20:45)
--- NOTE | 2021-01-14 12:12 | NUR ---
GAVE REPORT TO ANJALI SANCHEZ ON PCU. PT GOING TO ROOM 4297E
--- NOTE | 2021-01-14 12:12 | NUR ---
Patient in room ORTHO 4010. I have received report from Fallon ALBA and had the opportunity to ask questions and assume patient care.
[2021-01-14 15:00] VITALS: BP 112/78
[2021-01-14 18:00] VITALS: BP 115/80
--- NOTE | 2021-01-14 18:07 | NUR ---
Problems reprioritized. Patient report given, questions answered & plan of care reviewed with Carlota ALBA.
[2021-01-14] MEDS: QUEtiapine 25mg tablet PO SCH (21:17)
[2021-01-14] MEDS: gabapentin 300mg capsule PO SCH (21:17)
[2021-01-15 01:30] VITALS: BP 115/76
[2021-01-15] MEDS: cephalexin 250mg capsule PO SCH ×4 (03:06→19:56)
[2021-01-15] MEDS: sodium chloride 0.45% 1,000 ML IV SCH ×2 (04:53→14:28)
[2021-01-15 06:00] VITALS: BP 115/81
[2021-01-15] MEDS: K and/or MAG REPLACEMENT MC SCH ×2 (07:37→20:00)
[2021-01-15] MEDS: lactose-reduced food (Ensure Enlive) - 237ml bottle PO SCH ×3 (08:00→18:00)
[2021-01-15] MEDS: polyethylene glycol 3350 17gm powd pack PO SCH (08:00)
[2021-01-15] MEDS: thiamine 100mg tablet PO SCH (09:12)
[2021-01-15] MEDS: fluconazole 100mg tablet PO SCH (09:12)
[2021-01-15] MEDS: atenolol 25mg tablet PO SCH (09:13)
[2021-01-15] MEDS: heparin, porcine 5000 units/ml vial SQ SCH ×2 (09:13→19:57)
[2021-01-15] MEDS: lactobacillus rhamnosus 10,000 MMU CELLS/CAPSULE PO SCH ×2 (09:14→19:56)
[2021-01-15] MEDS: multivitamins, therapeutics tablet PO SCH (09:14)
--- NOTE | 2021-01-15 09:32 | NUR ---
Reassessment: Pt continues w/ low meal intake, avg 22% x 8 meals on regular diet though 75% x 7 ONS, which meets minimum est needs at this time. Pt able to feed self. No N/V/D noted, LBM 01/14 receiving routine Miralax. No new nutritional intervention at this time, will continue to monitor. Recommend 1. Continue Regular diet as tolerated 2. Ensure Enlive TID to provide 1050kcals and 60g protein 3. Bowel care per rx 4. Weekly wts Addendum: 01/15/21 at [address] Amended: Links added.
[2021-01-15 11:00] VITALS: BP 109/68
[2021-01-15 15:00] VITALS: BP 116/76
[2021-01-15 18:00] VITALS: BP 109/69
--- NOTE | 2021-01-15 18:34 | NUR ---
Problems reprioritized. Patient report given, questions answered & plan of care reviewed with Carlita ALBA. Patient stable at transfer of care.
[2021-01-15] MEDS: QUEtiapine 25mg tablet PO SCH (20:54)
[2021-01-15] MEDS: gabapentin 300mg capsule PO SCH (20:54)
[2021-01-15 22:00] VITALS: BP 125/61
[2021-01-16] MEDS: cephalexin 250mg capsule PO SCH ×4 (01:28→22:51)
[2021-01-16] MEDS: sodium chloride 0.45% 1,000 ML IV SCH ×2 (01:29→12:59)
[2021-01-16 02:00] VITALS: BP 103/71
[2021-01-16 06:00] VITALS: BP 113/77
--- NOTE | 2021-01-16 06:24 | NUR ---
Problems reprioritized. Patient report given, questions answered & plan of care reviewed with ANJALI Espinoza.
--- NOTE | 2021-01-16 06:25 | NUR ---
Patient in room PCU 3027. I have received report from cortes haile and had the opportunity to ask questions and assume patient care.
[2021-01-16] MEDS: atenolol 25mg tablet PO SCH (07:43)
[2021-01-16] MEDS: lactobacillus rhamnosus 10,000 MMU CELLS/CAPSULE PO SCH ×2 (07:43→22:51)
[2021-01-16] MEDS: thiamine 100mg tablet PO SCH (07:44)
[2021-01-16] MEDS: multivitamins, therapeutics tablet PO SCH (07:44)
[2021-01-16] MEDS: heparin, porcine 5000 units/ml vial SQ SCH ×2 (07:45→23:07)
[2021-01-16] MEDS: fluconazole 100mg tablet PO SCH (07:46)
[2021-01-16] MEDS: polyethylene glycol 3350 17gm powd pack PO SCH (07:48)
[2021-01-16] MEDS: K and/or MAG REPLACEMENT MC SCH ×2 (08:00→20:00)
[2021-01-16] MEDS: lactose-reduced food (Ensure Enlive) - 237ml bottle PO SCH ×3 (08:00→18:00)
[2021-01-16 11:13] VITALS: BP 103/71
[2021-01-16 15:30] VITALS: BP 113/74
[2021-01-16 18:00] VITALS: BP 106/79
[2021-01-16 22:00] VITALS: BP 104/69
[2021-01-16] MEDS: QUEtiapine 25mg tablet PO SCH (23:08)
[2021-01-16] MEDS: gabapentin 300mg capsule PO SCH (23:08)
[2021-01-17 00:05] LABS: CLARITY,URINE SLIGHTLY CLOUDY (Clear); COLOR,URINE YELLOW (Yellow); UA COLLECTION TYPE CLN CATCH MIDSTREAM
[2021-01-17 00:06] LABS: GLUCOSE, URINE NEGATIVE (Neg); KETONES,URINE >=160 mg/dl (Neg); PROTEIN,URINE NEGATIVE (Neg)
[2021-01-17 00:07] LABS: LEUKOCYTE ESTERASE ,URINE MODERATE (Neg); NITRITES, URINE NEGATIVE (Neg); OCCULT BLOOD,URINE MODERATE (Neg); UROBILINOGEN,URINE 0.2 E.U/dL (0.2-1.0)
[2021-01-17 00:08] LABS: WBC,URINE 30-50 /HPF (0-4)
[2021-01-17 00:09] LABS: BACTERIA,URINE NONE SEEN /HPF (Neg); MUCUS STRANDS NONE SEEN /LPF (Neg); SQUAMOUS EPITHELIAL CELL,UR MANY /LPF (FEW)
[2021-01-17 02:00] VITALS: BP 105/68
[2021-01-17] MEDS: cephalexin 250mg capsule PO SCH ×3 (02:00→14:00)
[2021-01-17] MEDS: sodium chloride 0.45% 1,000 ML IV SCH ×2 (03:10→08:45)
[2021-01-17 06:00] VITALS: BP 114/72
--- NOTE | 2021-01-17 06:27 | NUR ---
Patient in room PCU 3027. I have received report from YINA ALBA and had the opportunity to ask questions and assume patient care.
[2021-01-17] MEDS: K and/or MAG REPLACEMENT MC SCH (08:00)
[2021-01-17] MEDS: lactose-reduced food (Ensure Enlive) - 237ml bottle PO SCH ×2 (08:00→13:00)
[2021-01-17] MEDS: polyethylene glycol 3350 17gm powd pack PO SCH (08:00)
[2021-01-17] MEDS: lactobacillus rhamnosus 10,000 MMU CELLS/CAPSULE PO SCH (08:35)
[2021-01-17] MEDS: thiamine 100mg tablet PO SCH (08:35)
[2021-01-17] MEDS: fluconazole 100mg tablet PO SCH (08:35)
[2021-01-17] MEDS: multivitamins, therapeutics tablet PO SCH (08:36)
[2021-01-17] MEDS: atenolol 25mg tablet PO SCH (08:38)
[2021-01-17] MEDS: heparin, porcine 5000 units/ml vial SQ SCH (08:46)
[2021-01-17 10:56] LABS: BASOPHILS # (AUTO) 0.1 X10'3 (0-0.2); BASOPHILS % (AUTO) 1.3 % (0-1); EOSINOPHILS # (AUTO) 0.2 X10'3 (0-0.9); EOSINOPHILS % (AUTO) 3.6 % (0-6); HEMATOCRIT 35.7 % (35.0-45.0); HEMOGLOBIN 11.7 g/dl (12.0-16.0); LYMPHOCYTES # (AUTO) 1.3 X10'3 (1.1-4.8); LYMPHOCYTES % (AUTO) 30.8 % (21-51); MEAN CORPUSCULAR HEMOGLOBIN 31.5 PG (27.0-31.0); MEAN CORPUSCULAR HGB CONC 32.8 g/dL (33.0-36.5); MEAN PLATELET VOLUME 8.8 FL (7.4-10.4); MONOCYTES # (AUTO) 0.5 X10'3 (0-0.9); MONOCYTES % (AUTO) 11.1 % (2-12); NEUTROPHILS # (AUTO) 2.3 X10'3 (1.8-7.7); NEUTROPHILS % (AUTO) 53.2 % (42-75); PLATELET COUNT 282 X10'3 (140-440); RED BLOOD COUNT 3.71 X10'6 (4.20-5.60); RED CELL DISTRIBUTION WIDTH 14.9 % (11.5-14.5); WHITE BLOOD COUNT 4.3 X10'3 (4.5-11.0)
[2021-01-17 11:00] VITALS: BP 104/74
[2021-01-17 11:01] LABS: ALBUMIN 2.8 G/DL (3.4-5.0); ANION GAP 15 (8-16); BLOOD UREA NITROGEN 4 MG/DL (7-18); BUN/CREATININE RATIO 7.1 (6.6-38.0); CALCIUM 8.7 MG/DL (8.5-10.1); CHLORIDE 108 MMOL/L (99-107); CREATININE 0.56 MG/DL (0.40-0.90); GLUCOSE 83 MG/DL (70-104); POTASSIUM 3.5 MMOL/L (3.5-5.1); SODIUM 144 MMOL/L (135-145); TOTAL CARBON DIOXIDE 21.2 MMOL/L (24-32); eGFR > 90 ML/MIN
--- NOTE | 2021-01-17 14:08 | NUR ---
Called and gave report to Alicia. Spoke with Sharon ALBA. Pt transferred at 1405 in stable condition
== END 2021-01-17 14:10 | DRG 58 ==
LOC: ORTHO 4S 14:15 → PCU 3S 01-14 12:40
PROVIDERS: ADMIT Internal Medicine; ATTEND Family Medicine
DX: G93.0 Cerebral cysts (principal); G93.40 Encephalopathy, unspecified; B37.49 Other urogenital candidiasis; E87.6 Hypokalemia; R74.8 Abnormal levels of other serum enzymes; R00.0 Tachycardia, unspecified; E87.0 Hyperosmolality and hypernatremia; Z72.89 Other problems related to lifestyle
CPT/HCPCS: 36415; 70470; 70553; 71045; 80048; 80053; 81001; 81003; 83605; 83735; 85025; 87040; 87081; 87088; 97110; 97116; 97163; 97530; 97535; 97542; A9575; G0378; J1644; J7030

== ENCOUNTER 2021-04-07 09:51 | Emergency (ER) | payer MEDICAID ==
[~2021-04-07] VITALS: Ht 170.2 cm; Wt 61.4 kg
[~2021-04-07 09:51] MED LIST changes: +ACET-1015 PO; +FLO0.4C PO; +FLUC200T28 PO; +GABA300C PO; +HEPA1DIS10 SQ; +MULT-1085 PO; -NO HOME MEDS; +POLY17PO10 PO; +QUET25TA PO; +SENN-25 PO; +THIA50TA10 PO; +VITA-347 PO; +[UNRECOGNIZED DRUG - CODE] PO
[2021-04-07 10:06] VITALS: BP 150/77
[2021-04-07] MEDS ORDERED: normal saline 1000ML IV soln IVB ONE (10:10)
[2021-04-07 10:43] LABS: CLARITY,URINE TURBID (Clear); COLOR,URINE YELLOW (Yellow); GLUCOSE, URINE NEGATIVE (Neg); KETONES,URINE NEGATIVE (Neg); LEUKOCYTE ESTERASE ,URINE MODERATE (Neg); NITRITES, URINE POSITIVE (Neg); OCCULT BLOOD,URINE TRACE-INTACT (Neg); PH,URINE >=9.0 (4.8-8.0); PROTEIN,URINE 100 mg/dl (Neg)
[2021-04-07 10:49] LABS: UA COLLECTION TYPE CLN CATCH MIDSTREAM
[2021-04-07 10:52] LABS: URINE AMPHETAMINE SCREEN NEGATIVE (Neg); URINE BARBITUATE SCREEN NEGATIVE (Neg); URINE BENZODIAZEPINES SCREEN NEGATIVE (Neg); URINE CANNABINOID SCREEN NEGATIVE (Neg); URINE COCAINE SCREEN NEGATIVE (Neg); URINE METHADONE SCREEN NEGATIVE (Neg); URINE OPIATE SCREEN NEGATIVE (Neg); URINE PHENCYCLIDINE SCREEN NEGATIVE (Neg)
[2021-04-07 10:53] LABS: MUCUS STRANDS MANY /LPF (Neg); SQUAMOUS EPITHELIAL CELL,UR FEW /LPF (FEW)
[2021-04-07 10:54] LABS: BASOPHILS % (AUTO) 0.3 % (0-1); EOSINOPHILS % (AUTO) 0.5 % (0-6); HEMATOCRIT 37.9 % (35.0-45.0); HEMOGLOBIN 12.1 g/dl (12.0-16.0); LYMPHOCYTES # (AUTO) 0.9 X10'3 (1.1-4.8); LYMPHOCYTES % (AUTO) 10.1 % (21-51); MEAN CORPUSCULAR HGB CONC 31.9 g/dL (33.0-36.5); MEAN CORPUSCULAR VOLUME 81.5 FL (78-98); MEAN PLATELET VOLUME 9.2 FL (7.4-10.4); MONOCYTES # (AUTO) 0.6 X10'3 (0-0.9); MONOCYTES % (AUTO) 6.9 % (2-12); NEUTROPHILS # (AUTO) 7.4 X10'3 (1.8-7.7); NEUTROPHILS % (AUTO) 82.2 % (42-75); PLATELET COUNT 261 X10'3 (140-440); RED BLOOD COUNT 4.65 X10'6 (4.20-5.60); RED CELL DISTRIBUTION WIDTH 17.6 % (11.5-14.5)
[2021-04-07 10:54] LABS: BACTERIA,URINE 4+ /HPF (Neg); WBC,URINE TNTC /HPF (0-4)
[2021-04-07 10:55] LABS: RBC,URINE 0-2 /HPF (0-2); TRIPLE PHOSPHATE CRYST 1+ /HPF (NEGATIVE)
[2021-04-07 10:58] LABS: TRANSITIONAL EPI CELLS,URINE FEW /HPF
[2021-04-07 10:59] LABS: ALANINE AMINOTRANSFERASE 22 U/L (12-78); ALBUMIN 3.2 G/DL (3.4-5.0); ALBUMIN/GLOBULIN RATIO 0.9 (1.1-1.5); ALKALINE PHOSPHATASE 66 IU/L (46-116); ANION GAP 10 (8-16); ASPARTATE AMINO TRANSFERASE 14 U/L (10-37); BILIRUBIN,TOTAL 0.5 MG/DL (0.1-1.0); BLOOD UREA NITROGEN 16 MG/DL (7-18); BUN/CREATININE RATIO 18.6 (6.6-38.0); CALCIUM 8.6 MG/DL (8.5-10.1); CHLORIDE 107 MMOL/L (99-107); CREATININE 0.86 MG/DL (0.40-0.90); GLUCOSE 109 MG/DL (70-104); POTASSIUM 3.2 MMOL/L (3.5-5.1); SODIUM 142 MMOL/L (135-145); TOTAL CARBON DIOXIDE 24.7 MMOL/L (24-32); TOTAL PROTEIN 6.7 G/DL (6.4-8.2); eGFR 73 ML/MIN
[2021-04-07 11:01] LABS: ETHANOL < 0.010 GM/DL (0.0-0.010)
[2021-04-07 11:23] LABS: HCG SERUM QL NEGATIVE
[2021-04-07] MEDS ORDERED: CEPH250T PO (14:44)
== END 2021-04-07 15:31 | disposition home or self-care (01) ==
LOC: ER 09:51
DX: N39.0 Urinary tract infection, site not specified (principal); R20.2 Paresthesia of skin; R20.0 Anesthesia of skin; R53.1 Weakness; G47.00 Insomnia, unspecified; Z98.84 Bariatric surgery status; Z79.2 Long term (current) use of antibiotics; Z79.899 Other long term (current) drug therapy
CPT/HCPCS: 36415; 70450; 71045; 80053; 80305; 80320; 81001; 83605; 84703; 85025; 87040; 87077; 87088; 87186; 93005; 99285